=== PATIENT | male | born 1950 | race Caucasian/White ===

== ENCOUNTER 2020-02-18 12:41 | Outpatient (CLI) | payer MEDICARE, MEDICAID, SELFPAY ==
--- NOTE | 2020-02-18 | MR_ITS ---
NOTE: Report was unsigned for reason: Order was edited. Original Signature date and time was: 02/18/20 1448 WS: [id number] MRI LUMBAR SPINE NONCONTRAST HISTORY: SCHWANNOMA OF SPINAL CORD COMPARISON: 02/07/2019 TECHNIQUE: Sagittal and axial multisequence imaging is submitted. Patient was unable to continue the examination with contrast due to pain. 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 On the noncontrast imaging submitted there is no increased soft tissue abnormality or soft tissue thickening or signal abnormality to suggest recurrent tumor. Prior vertebroplasties at T12 and L1. Compression fractures are stable. 4 mm retropulsion posterior superior endplate of L3 is stable with mild compression upon the ventral thecal sac. Mild disc space narrowing and desiccation throughout the lumbar spine. No acute fractures or acute marrow edema. Conus terminates normally at L1. L1-L2: No central stenosis. Mild facet facet joint arthritis with mild LEFT foraminal narrowing due to a small protrusion and facet arthritis. L2-L3: Diffuse annular disc bulging and retropulsion of the L3 superior endplate facet arthritis. Moderate encroachment upon the ventral thecal sac. There is mild central and moderate subarticular recess stenosis. Mild bilateral foraminal narrowing. L3-L4: Mild diffuse annular disc bulging and facet arthritis. Disc osteophyte encroachment upon the ventral thecal sac. Mild central stenosis. There is moderate bilateral foraminal stenosis. L4-L5: Mild annular disc bulging and facet arthritis. Mild bilateral foraminal stenosis. L5-S1: Mild annular disc bulging with slight contact upon the RIGHT S1 nerve root similar to the prior study. [facility] MR/MR lumbar spine wo/w con [id number] IMPRESSION: 1. Study terminated early due to patient's pain. No contrast study performed. 2. Large laminectomy defects at L1 and L2. On this noncontrast study no eviden ce for recurrent or residual schwannoma. 3. Multilevel degenerative changes of the lumbar spine. No significant progres oliverio since 02/07/2019. 4. Prior stable compression fractures with vertebroplasties at T12 and L3. 5. L3 retropulsion with mild contact on the thecal sac and central stenosis. 6. Mild central with moderate bilateral subarticular recess stenosis at L2-3. 7. Mild central and moderate bilateral foraminal stenosis at L3-4. 8. Mild bilateral foraminal stenosis at L4-5 and on the LEFT at L1-2.
[2020-02-18 14:02] LABS: Glomerular Filtration Rate 83.7 mL/min (90-130)
== END 2020-02-18 12:42 | disposition home or self-care (01) ==
PROVIDERS: PCP Family Medicine; Visit Provider Specialist
DX: D33.4 Benign neoplasm of spinal cord (principal); M48.061 Spinal stenosis, lumbar region without neurogenic claudication
CPT/HCPCS: 36415; 72148; 72158; 82565; A9579

== ENCOUNTER → 2020-04-16 09:17 | Outpatient (BNVA) | payer MEDICARE, MEDICAID, SELFPAY | PROVIDERS: PCP Family Medicine; Referring Provider Specialist; Visit Provider Anesthesiology Pain Medicine | DX: M47.816 Spondylosis without myelopathy or radiculopathy, lumbar region (principal); M54.16 Radiculopathy, lumbar region; M54.9 Dorsalgia, unspecified; M62.830 Muscle spasm of back; Z98.1 Arthrodesis status; Z98.890 Other specified postprocedural states | CPT/HCPCS: 99204 ==

== ENCOUNTER 2020-04-20 18:27 | Emergency (ER) | payer MEDICARE, MEDICAID, SELFPAY ==
[2020-04-20] VITALS (8 sets, daily range): BP systolic 82–114; BP diastolic 53–87; PULSE 64–86; RESP 16–18; O2SAT 90–96; BMI 25.1
--- NOTE | 2020-04-20 18:32 | XR_ITS ---
WS: [id number] Portable AP upright chest, 04/20/2020 Clinical Data: ams Comparison: Bilateral rib detail, 03/10/2016. Findings: No nodules, masses or effusions are seen. The heart is normal. The pulmonary vascularity is not increased. No pneumonia or pneumothorax is seen. The patient has had an anterior cervical disc f usion from C5 through C7. Vertebroplasty cement is noted at T12 and L1. XR/XR chest 1V portable [id number] Impression: Negative for acute cardiopulmonary disease.
--- NOTE | 2020-04-20 18:33 | ECG_ITS ---
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 Measurements Intervals [place] Rate: 77 P: 40 ID: [id number] QRS: 15 QRSD: 85 T: 29 QT: 366 QTc: 417 Interpretive Statements SINUS RHYTHM Compared to ECG 12/15/2017 06:36:35 No significant changes Electronically Signed On 04-20-2020 19:08:37 CDT by Diogo Jarrell M.D. [id number]
--- NOTE | 2020-04-20 18:34 | ED_ITS ---
HPI - Altered Mental Status General: Chief Complaint: Weakness Stated Complaint: MULTIPLE SYMPTOMS Time Seen by Provider: 04/20/20 18:28 Source: patient and EMS Mode of arrival: EMS Limitations: no limitations History of Present Illness: HPI narrative: 69-year-old male who presents here with EMS from local care home. Per EMS care home nurse did not know patient's baseline but during his neuro check he was confused. Patient has a history of schwannoma of the spinal cord and some confusion in the past. Patient here is able answer all my questions appropriately he knows name he knows the year and he knows where he lives. He has no complaints at this time and denies any pain or headache. Associated symptoms: Deny depression Review of Systems Const: Denies: fever(s), chills, body aches or change in appetite Eyes: Denies: blurry vision or eye discomfort ENMT: Denies: throat pain or dental pain Card: Denies: chest pain Resp: Denies: dyspnea GI: Denies: abdominal pain, nausea, vomiting or diarrhea : Denies: dysuria Musc: Denies: neck pain or back pain Skin/Breast: Denies: rash Neuro: Reports: confusion Psych: Denies: depression Kye/Lymph: Denies: easy bruising All/Imm: Denies: urticaria PFSH ED PFSH: Medical History (Updated 04/20/20 @ 21:33 by Ricci Calderón MD) Schwannoma of spinal cord Surgical History (Updated 04/16/20 @ 10:10 by Delroy Mckeon MD) History of fusion of cervical spine (~05/31/16) C5-6, C6-7 [place] [facility] [place] l[place]ctomy (~11/29/16) 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, extramedullary neoplasm[place] [facility] [place] Smoking and tobacco status: never smoked Alcohol intake: never Lives independently: Yes Housing: Assisted Living Facility Marital status: Single Current occupational status: retired History of recent travel: No Physical Exam Const: COMMON NORMALS: no acute distress, patient oriented x3 and healthy appearing HENMT: COMMON NORMALS: normocephalic and atraumatic HEAD & SCALP: normocephalic and atraumatic Eye: COMMON NORMALS: Equal, round and reactive pupils present and EOMs intact bilaterally PUPIL: Yes Equal, round and reactive pupils present Neck/C-Spine: COMMON NORMALS: full ROM and supple Chest: COMMONS NORMALS: normal inspection of the chest and normal palpation of entire chest wall Resp: COMMON NORMALS: normal respiratory effort, No retractions, No use of accessory muscles and clear to auscultation bilaterally AUSCULTATION: clear to auscultation bilaterally Cardio: COMMON NORMALS: regular rate, regular rhythm and No murmurs present (Cardio) RATE: regular rate RHYTHM: regular rhythm GI: COMMON NORMALS: Normal to inspection, nondistended, normoactive bowel sounds present, Soft to palpation, non-tender and no masses PALPATION: Yes Soft to palpation Extremity: COMMON NORMALS: normal to inspection and full ROM Neuro: COMMON NORMALS: patient oriented x3, moves all extremities and no focal motor deficits Psych: COMMON NORMALS: mental status grossly normal, Normal thought process present and cooperative THOUGHT PROCESS: Normal thought process present Skin: COMMON NORMALS: no rashes or lesions noted and no wounds GENERAL SKIN EXAM: no rashes or lesions noted Course Vital Signs: Vital signs: Vital Signs Pulse Rate 78 04/20/20 18:29 Respiratory Rate 18 04/20/20 18:29 Blood Pressure 106/68 04/20/20 18:29 Pulse Oximetry 93 04/20/20 18:29 MDM - Altered Mental Status MDM Narrative: Medical decision making narrative: Patient presents here with weakness. Patient here is no signs of stroke and CT head lab works all normal. Patient is ANO x4 and able answer all my questions appropriately. Patient is stable for discharge back to care home at this time. Patient is to follow-up with primary care doctor in 3 to 5 days return if worsening. Lab Data: Labs: Lab Results 04/20/20 04/20/20 04/20/20 Range/Units 18:42 18:42 18:42 WBC 6.5 (4.0-10.0) 10^3/ uL RBC 3.69 L (4.1-5.3) 10^6/u L Hgb 11.8 (11.7-16.6) g/dL Hct 36.8 L (42.0-52.0) % MCV 99.7 H (80-94) fL MCH 32.0 (28.0-34.0) pg MCHC 32.1 (30.0-36.0) g/dL RDW 14.3 (12.1-15.1) % Plt Count 243 (130-400) 10^3/c mm MPV 10.6 H (7.4-10.4) fL Neut % (Auto) 50.6 % Lymph % (Auto) 35.2 % [place] % (Auto) 8.5 % Eos % (Auto) 4.6 % Baso % (Auto) 0.8 % Neut # (Auto) 3.28 (1.8-7.7) 10^3/u L Lymph # (Auto) 2.3 (0.8-4.8) 10^3/u L [place] # (Auto) 0.6 (0.2-0.9) 10^3/u L Eos # (Auto) 0.3 (0.0-0.8) 10^3/u L Baso # (Auto) 0.1 (0.0-0.1) 10^3/u L Nucleated RBC % (a uto) 0 % Nucleated RBCs # 0.0 /100WBC PT 14.40 H (10.5-13.3) SECO NDS INR 1.08 (0.8-1.2) Sodium 138 (136-145) mmol/L Potassium 3.5 (3.5-5.1) mmol/L Chloride 106 (98-107) mmol/L Carbon Dioxide 19 L (22-29) mmol/L Anion Gap 16.5 (5-19) BUN 25 H (8-23) mg/dL Creatinine 1.8 H (0.7-1.2) mg/dL GFR Calculation 37.6 L (90-130) mL/min Glucose 119 H (65-115) mg/dL Calculated Osmolal ity 284 L (285-295) mOsm/k g Calcium 8.3 L (8.5-10.5) mg/dL Total Bilirubin 0.2 (0.15-1.2) mg/dL AST 40 (0-40) U/L ALT 17 (0-41) U/L Alkaline Phosphata se 136 H (40-130) IU/L Total Protein 7.0 (6.6-8.7) g/dL Albumin 3.5 (3.5-5.2) g/dL Globulin 3.5 (1.3-4.6) g/dL Urine Color (Yellow) Urine Appearance (CLEAR) Urine pH (5-7) Ur Specific Gravit y (1.005-1.030) Urine Protein (Negative) Urine Glucose (UA) (Normal) Urine Ketones (Negative) Urine Blood (Negative) Urine Nitrate (Negative) Urine Bilirubin (NEGATIVE) Urine Urobilinogen (Negative) mg/dL Ur Leukocyte Payal ase (Negative) Urine RBC (0-2) /hpf Urine WBC (0-5) /hpf Ur Squamous Epith Cells (0-5) Ur Transition Epit h Cell /hpf Amorphous Sediment Urine Bacteria (NONE) Hyaline Casts Coarse Granular Ca sts /lpf Other Casts /lpf Urine Mucus 04/20/20 Range/Units 19:45 WBC (4.0-10.0) 10^3/ uL RBC (4.1-5.3) 10^6/u L Hgb (11.7-16.6) g/dL Hct (42.0-52.0) % MCV (80-94) fL MCH (28.0-34.0) pg MCHC (30.0-36.0) g/dL RDW (12.1-15.1) % Plt Count (130-400) 10^3/c mm MPV (7.4-10.4) fL Neut % (Auto) % Lymph % (Auto) % [place] % (Auto) % Eos % (Auto) % Baso % (Auto) % Neut # (Auto) (1.8-7.7) 10^3/u L Lymph # (Auto) (0.8-4.8) 10^3/u L [place] # (Auto) (0.2-0.9) 10^3/u L Eos # (Auto) (0.0-0.8) 10^3/u L Baso # (Auto) (0.0-0.1) 10^3/u L Nucleated RBC % (a uto) % Nucleated RBCs # /100WBC PT (10.5-13.3) SECO NDS INR (0.8-1.2) Sodium (136-145) mmol/L Potassium (3.5-5.1) mmol/L Chloride (98-107) mmol/L Carbon Dioxide (22-29) mmol/L Anion Gap (5-19) BUN (8-23) mg/dL Creatinine (0.7-1.2) mg/dL GFR Calculation (90-130) mL/min Glucose (65-115) mg/dL Calculated Osmolal ity (285-295) mOsm/k g Calcium (8.5-10.5) mg/dL Total Bilirubin (0.15-1.2) mg/dL AST (0-40) U/L ALT (0-41) U/L Alkaline Phosphata se (40-130) IU/L Total Protein (6.6-8.7) g/dL Albumin (3.5-5.2) g/dL Globulin (1.3-4.6) g/dL Urine Color Yellow (Yellow) Urine Appearance Hazy A (CLEAR) Urine pH 5 (5-7) Ur Specific Gravit y 1.015 (1.005-1.030) Urine Protein Neg (Negative) Urine Glucose (UA) Norm (Normal) Urine Ketones Negative (Negative) Urine Blood Trace H (Negative) Urine Nitrate Negative (Negative) Urine Bilirubin 1+ H (NEGATIVE) Urine Urobilinogen Norm (Negative) mg/dL Ur Leukocyte Payal ase Negative (Negative) Urine RBC 0-4 H (0-2) /hpf Urine WBC 5-10 H (0-5) /hpf Ur Squamous Epith Cells 0-4 H (0-5) Ur Transition Epit h Cell 15-25 /hpf Amorphous Sediment Not Reportable Urine Bacteria Trace (NONE) Hyaline Casts 0-4 H Coarse Granular Ca sts Rare /lpf Other Casts Wbc cast /lpf Urine Mucus Trace Imaging Data^: CT Head: Radiologist's impression: [address] [place] [address] CT Scan Report Signed Patient: Ketan Sosa Unit #: [id number] : 1950 2 Age/Sex: 69 / M ADM Date: 04/20/20 Loc: ER Room/Bed: Attending Dr: Ordering Provider/Ordering MD: Ricci Calderón MD Date of Service: 04/20/20 Procedure(s): CT head wo con* [id number] Accession Number(s): [id number] Report Number: [id number] PROCEDURE INFORMATION: Exam: CT Head Without Contrast Exam date and time: 04/20/2020 7:34 PM Age: 69 years old Clinical indication: Altered mental status/memory loss; Additional info: AMS TECHNIQUE: Imaging protocol: Computed tomography of the head without contrast. Radiation optimization: All CT scans at this facility use at least one of these dose optimization techniques: automated exposure control; mA and/or kV adjustment per patient size (includes targeted exams where dose is matched to clinical indication); or iterative reconstruction. COMPARISON: CT head wo con* [id number] 12/15/2017 7:04 AM RADIATION DOSE METRICS: Total DLP (mGy-cm): 736.34 FINDINGS: Brain: There is diffuse cerebral atrophy present, consistent with this patient's age.No evidence for large acute ischemic infarction. Please note acute ischemia can be occult by head CT. 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 Bones/joints: Unremarkable. No acute fracture. Sinuses: Visualized sinuses are unremarkable. No fluid levels. Mastoid air cells: Visualized mastoid air cells are well aerated. Soft tissues: Unremarkable. CT/CT head wo con* [id number] IMPRESSION: There are senescent changes of the brain as described above. No evidence for large acute ischemic infarction or acute intracranial injury. Radiation Dose CTDIVOL = (mGy): DLP = 736.34 (mGy-cm) CXR: Attestation: I personally reviewed and interpreted this imaging study as follows: My impression: No acute abnormality EKG Data^: EKG 1: Attestation: I personally reviewed and interpreted this EKG as follows: EKG interpretation date: 04/20/20 EKG interpretation time: 18:53 Interpretation: nsr hr [address] or t wave abnormalities qrs 86 qtc 398 Discharge Plan Discharge Patient Disposition: Home, Self-Care Clinical Impression: Weakness Condition: Stable Prescriptions: No Action primidone 50 mg tablet 250 mg PO QID RF: 0 acetaminophen [Tylenol Extra Strength] 500 mg tablet 500 mg PO Q6H PRN (Reason: Pain) RF: 0 ibuprofen 600 mg tablet 600 mg PO Q8H PRN (Reason: Pain) RF: 0 atorvastatin 40 mg tablet 40 mg PO DAILY RF: 0 senna 8.6 mg capsule 8.6 mg PO BID PRN (Reason: Constipation) RF: 0 ergocalciferol (vitamin D2) [Vitamin D2] 1,250 mcg (50,000 unit) capsule 1,250 mcg PO .WEEKLY RF: 0 aspirin 325 mg tablet 325 mg PO DAILY RF: 0 melatonin 5 mg capsule 5 mg PO BEDTIME RF: 0 gabapentin 300 mg capsule 300 mg PO DAILY RF: 0 topiramate 25 mg capsule,extended release 24hr 75 mg PO BID RF: 0 sulfamethoxazole-trimethoprim [Bactrim DS] 800-160 mg Tablet 1 tab PO BID RF: 0 baclofen 10 mg tablet 10 mg PO DAILY RF: 0 Enema Disposable 19-7 gram/118 mL Enema 118 ml UT DAILY PRN (Reason: Constipation) RF: 0 Saccharomyces boulardii [Florastor] 250 mg Capsule 250 mg PO TID RF: 0 Discharge Orders: Discharge Order (Routine); Ordered 04/20/20 Ordered By: Ricci Calderón Referrals: Raúl Keller DO [Primary Care Provider] - 1-3 days Discharge Diet: Advance as tolerated Discharge Activity: Resume usual activity Patient Instructions: Weakness (ED) Coding Level of Care Code ED Hem Marker for Chg Fwd Exam Comprehensive
[2020-04-20 18:48] LABS: Basophils # 0.1 10^3/uL (0.0-0.1); Basophils % 0.8 %; Eosinophils # 0.3 10^3/uL (0.0-0.8); Eosinophils % 4.6 %; Hematocrit 36.8 % (42.0-52.0); Hemoglobin 11.8 g/dL (11.7-16.6); Lymphocytes # 2.3 10^3/uL (0.8-4.8); Lymphocytes % 35.2 %; Mean Corpuscular HGB Conc 32.1 g/dL (30.0-36.0); Mean Corpuscular Volume 99.7 fL (80-94); Mean Platelet Volume 10.6 fL (7.4-10.4); Monocytes # 0.6 10^3/uL (0.2-0.9); Monocytes % 8.5 %; Neutrophils # 3.28 10^3/uL (1.8-7.7); Neutrophils % 50.6 %; Nucleated Red Blood Cells % 0 %; Platelet Count 243 10^3/cmm (130-400); Red Blood Count 3.69 10^6/uL (4.1-5.3); Red Cell Distribution Width 14.3 % (12.1-15.1); White Blood Count 6.5 10^3/uL (4.0-10.0)
[2020-04-20] MEDS: sodium chloride 0.9% 1,000 ML 999 ML IV (18:53)
[2020-04-20 18:56] LABS: INR 1.08 (0.8-1.2)
[2020-04-20 19:16] LABS: Alanine Aminotransferase 17 U/L (0-41); Albumin Level 3.5 g/dL (3.5-5.2); Alkaline Phosphatase 136 IU/L (40-130); Anion Gap 16.5 (5-19); Aspartate Amino Transferase 40 U/L (0-40); Blood Urea Nitrogen 25 mg/dL (8-23); Calcium 8.3 mg/dL (8.5-10.5); Carbon Dioxide 19 mmol/L (22-29); Chloride 106 mmol/L (98-107); Globulin 3.5 g/dL (1.3-4.6); Glomerular Filtration Rate 37.6 mL/min (90-130); Glucose 119 mg/dL (65-115); Osmolality Calculated 284 mOsm/kg (285-295); Potassium 3.5 mmol/L (3.5-5.1); Sodium 138 mmol/L (136-145); Total Bilirubin 0.2 mg/dL (0.15-1.2)
[2020-04-20 21:21] LABS: Add Urine Microscopic? YES; Bilirubin Urine 1+ (NEGATIVE); Blood Urine Trace (Negative); Glucose Urine UA Norm (Normal); Ketones Urine Negative (Negative); Leukocyte Esterase Urine Negative (Negative); Nitrate Urine Negative (Negative); Protein Urine Neg (Negative); Specific Gravity, Urine 1.015 (1.005-1.030); Urine Appearance Hazy (CLEAR); Urine Color Yellow (Yellow); Urobilinogen Urine Norm (Negative); pH Urine 5 (5-7)
[2020-04-20 21:23] LABS: Bacteria Urine TRACE; RBC Urine 0-4 /hpf (0-2); Squamous Epithelial Cell Urine 0-4 (0-5); Transitional Epi Cells Urine 15-25 /hpf
[2020-04-20 21:24] LABS: Coarse Granular Casts Urine RARE /lpf; Hyaline Casts Urine 0-4; Mucus Urine TRACE; Other Casts Urine WBC CAST /lpf
[2020-04-20 21:25] LABS: Add Urine Culture? No
--- NOTE | 2020-04-21 05:07 | PC.NURSE ---
urinal provided to pt for safety
--- NOTE | 2020-04-21 05:17 | PC.NURSE ---
pt assisted to commode with staff assistance
[2020-04-21 07:23] VITALS: BP 112/65; PULSE 70; RESP 15; O2SAT 96
[2020-04-21 08:22] VITALS: BP 118/72; PULSE 76; RESP 18; O2SAT 96
== END 2020-04-21 08:24 | disposition home or self-care (01) ==
PROVIDERS: Emergency Provider Emergency Medicine; PCP Family Medicine
DX: R53.1 Weakness (principal); Z79.82 Long term (current) use of aspirin
CPT/HCPCS: 12345; 70450; 71045; 80053; 81001; 81003; 85025; 85610; 93005; 96360; 99282; 99284; J7030

== ENCOUNTER 2020-06-02 18:12 | Inpatient (IN) | payer MEDICARE, MEDICAID, SELFPAY ==
[2020-06-02 18:12] VITALS: BP 115/66; PULSE 100; RESP 16; TEMP 36.9; O2SAT 91; BMI 22.1
--- NOTE | 2020-06-02 18:24 | CTR_ITS ---
PROCEDURE INFORMATION: Exam: CT Head Without Contrast Exam date and time: 06/02/2020 6:32 PM Age: 70 years old Clinical indication: Injury or trauma; Fall; Altered mental status/memory loss; Additional info: Fall, head injury, AMS TECHNIQUE: Imaging protocol: Computed tomography of the head without contrast. Sagittal and coronal reformatted images were created and reviewed. Radiation optimization: All CT scans at this facility use at least one of these dose optimization techniques: automated exposure control; mA and/or kV adjustment per patient size (includes targeted exams where dose is matched to clinical indication); or iterative reconstruction. COMPARISON: CT head wo con* [id number] 04/20/2020 7:27 PM RADIATION DOSE METRICS: Total DLP (mGy-cm): 628.36 FINDINGS: Brain: No acute intracranial hemorrhage. No acute infarct. No intra-axial or extra-axial masses. Rowell-white matter differentiation is preserved. No cerebral edema. No extra-axial fluid collections. No midline shift. No evidence for Chiari 1 malformation. Stable mild atrophy of the brain parenchyma. Stable mildly decreased attenuation in the deep white matter, consistent with mild chronic microangiopathic change. Ventricles: No hydrocephalus. Bones/joints: No acute fracture. Sinuses: Partially visualized small left maxillary sinus mucous retention cyst. Small air-fluid level in the visualized left maxillary sinus. Other visualized paranasal sinuses are clear. Mastoid air cells: Visualized mastoid air cells are clear. Orbits: Globes and lenses, extraocular muscles, and optic nerves are intact bilaterally. No acute intraorbital abnormality. Vasculature: Atherosclerotic changes in the visualized arteries. Soft tissues: Small right supraorbital soft tissue hematoma/contusion. CT/CT head wo con* [id number] IMPRESSION: 1. No acute abnormality of the brain. 2. Small air-fluid level in the visualized left maxillary sinus. This may represent acute sinusitis. Alternatively, this could represent hemorrhage in the sinus given history of trauma. If there is clinical concern for facial injury, dedicated CT scan of the facial bones would be recommended. 3. Stable mild atrophy of the brain parenchyma. 4. Stable mild chronic white matter microangiopathic change. 5. Small right supraorbital soft tissue hematoma/contusion. 6. Incidental/nonacute findings are listed in the report. Radiation Dose CTDIVOL = (mGy): DLP = 628.36 (mGy-cm)
--- NOTE | 2020-06-02 18:24 | XRR_ITS ---
PROCEDURE INFORMATION: Exam: XR Chest, 1 View Exam date and time: 06/02/2020 6:48 PM Age: 70 years old Clinical indication: Other: AMS; Patient HX: Patient unable to communicate history TECHNIQUE: Imaging protocol: XR of the chest Views: 1 view. COMPARISON: CR XR chest 1V portable [id number] 04/20/2020 7:21 PM FINDINGS: Lungs: Lungs are well aerated without a focal area of consolidation. Pleural space: Unremarkable. No pleural effusion. No pneumothorax. Heart/Mediastinum: Unremarkable. No cardiomegaly. Bones/joints: Prior surgical fixation of the caudal aspect of the cervical spine. Numerous old rib fractures on the left XR/XR chest 1V portable [id number] IMPRESSION: Lungs are well aerated without a focal area of consolidation.
--- NOTE | 2020-06-02 18:25 | ECG_ITS ---
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 Measurements Intervals [place] Rate: 92 P: 55 [place]: 159 QRS: 46 QRSD: 88 T: 37 QT: 347 QTc: 429 Interpretive Statements SINUS RHYTHM NONSPECIFIC ST & T-WAVE ABNORMALITY Compared to ECG 04/20/2020 18:53:16 T-wave abnormality now present Electronically Signed On 06-03-2020 17:25:05 CDT by Kiki Dominguez M.D. [id number]
--- NOTE | 2020-06-02 18:27 | ED_ITS ---
Documented by User: Isis Fam MD 06/04/20 20:28 HPI - Fall General: Chief Complaint: Fall Stated Complaint: AMS/ MULTIPLE FALLS Time Seen by Provider: 06/02/20 18:15 History of Present Illness: HPI Narrative: This patient is a 70-year-old male presenting from the skilled nursing in [place]. He was sent due to repeated falls in the last 24 hours. He also has had altered mental status from his baseline and is being uncooperative with care. EMS actually called me from the skilled nursing because the patient was refusing transport. They said that the attending physician at the skilled nursing had overridden the patient's ability to refuse transport. The serologist told me that he felt the patient was not competent to make his own decisions currently and so I did recommend he transport the patient. On arrival the patient is awake and alert but disoriented. He is able to tell me that he lives in the skilled nursing in [facility] but when I asked him where he is he also tells me he is in the skilled nursing in [place]. Even when I corrected him and said he was in the hospital he just kept repeating skilled nursing, skilled nursing, skilled nursing. He has multiple bruises over the right side of his face and on his right hand. He was able to tell me that he fell and that is what caused these bruises. He said his knees give out on him any falls. He does have a history of a prior schwannoma in his lower back and also has persistent chronic back pain and some stenosis in that area on a fairly recent MRI. He currently denies any pain, including in his back. He said he feels fine. His speech and movements are very stereotyped and repetitive. complaint: fall Onset (ago): day(s) (1) Fall from: standing Fall witnessed: yes, by living facility staff Place fall occurred: skilled nursing/SNF Loss of consciousness: None Review of Systems General: Reports: ROS unobtainable due to mental status PFSH ED 2 PFSH: Medical History Arthritis BPH (benign prostatic hyperplasia) GERD (gastroesophageal reflux disease) Intracranial mass senior living (current) use of opiate analgesic Mild cognitive impairment Osteoarthritis Pain management contract signed Schwannoma of spinal cord Tremor Surgical History History of fusion of cervical spine (~05/31/16) C5-6, C6-7 ACDFF, 05/31/2016, [facility] History of lumbar laminectomy (~11/29/16) 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 Multiple hematomas Eye: GENERAL EYE: appearance normal, both eyes and all related structures Neck/C-Spine: COMMON NORMALS: supple, no meningeal signs and no JVD Chest: COMMONS NORMALS: normal inspection of the chest Resp: COMMON NORMALS: normal respiratory effort, No use of accessory muscles and clear to auscultation bilaterally AUSCULTATION: clear to auscultation bilaterally Cardio: COMMON NORMALS: no JVD, regular rate, regular rhythm and No murmurs present (Cardio) RATE: regular rate RHYTHM: regular rhythm GI: COMMON NORMALS: Normal to inspection, nondistended, normoactive bowel sounds present, Soft to palpation and non-tender INSPECTION: Yes normal to inspection AUSCULTATION: Yes normoactive bowel sounds PALPATION: Yes Soft to palpation Back/Pelvis: COMMON NORMALS: thoracic and lumbar spine normal to inspection Extremity: COMMON NORMALS: normal to inspection Neuro: COMMON NORMALS: moves all extremities, no focal motor deficits and no sensory deficits noted SENSORIUM/ORIENTATION: Yes alert and Yes Orientation impaired MENINGEAL SIGNS: Yes no meningeal signs CRANIAL NERVES: Yes CN normal except as noted SPEECH: Other neuro speech findings (Stereotyped, repetitive) Psych: COMMON NORMALS: mental status grossly normal, cooperative and normal affect Skin: COMMON NORMALS: no rashes or lesions noted and turgor normal GENERAL SKIN EXAM: no rashes or lesions noted and turgor normal Course Vital Signs: Vital signs: Vital Signs Temperature 98.5 F 06/04/20 18:33 Pulse Rate 77 06/04/20 18:33 Respiratory Rate 16 06/04/20 18:33 Blood Pressure 109/68 06/04/20 18:33 Pulse Oximetry 95 06/04/20 18:33 MDM - Fall Lab Data: Labs: Lab Results 06/02/20 06/02/20 06/02/20 Range/Units 18:25 18:53 18:53 WBC 9.1 (4.0-10.0) 10^3/ uL RBC 3.91 L (4.1-5.3) 10^6/u L Hgb 12.6 (11.7-16.6) g/dL Hct 39.5 L (42.0-52.0) % MCV 101.0 H (80-94) fL MCH 32.2 (28.0-34.0) pg MCHC 31.9 (30.0-36.0) g/dL RDW 15.7 H (12.1-15.1) % Plt Count 276 (130-400) 10^3/c mm MPV 11.0 H (7.4-10.4) fL Neut % (Auto) 70.9 % Lymph % (Auto) 22.0 % [place] % (Auto) 5.5 % Eos % (Auto) 0.7 % Baso % (Auto) 0.5 % Neut # (Auto) 6.47 (1.8-7.7) 10^3/u L Lymph # (Auto) 2.0 (0.8-4.8) 10^3/u L [place] # (Auto) 0.5 (0.2-0.9) 10^3/u L Eos # (Auto) 0.1 (0.0-0.8) 10^3/u L Baso # (Auto) 0.1 (0.0-0.1) 10^3/u L Nucleated RBC % (a uto) 0 % Nucleated RBCs # 0.0 /100WBC PT (12.1-14.9) SECO NDS INR (0.8-1.2) Sodium 138 (136-145) mmol/L Potassium 3.3 L (3.5-5.1) mmol/L Chloride 104 (98-107) mmol/L Carbon Dioxide 16 L (22-29) mmol/L Anion Gap 21.3 H (5-19) BUN 33 H (8-23) mg/dL Creatinine 2.6 H (0.7-1.2) mg/dL GFR Calculation 24.5 L (90-130) mL/min Glucose 99 (65-115) mg/dL POC Glucose 102 (70-110) mg/dL Calculated Osmolal ity 283 L (285-295) mOsm/k g Lactic Acid (0.5-2.2) mmol/L Calcium 7.9 L (8.5-10.5) mg/dL Total Bilirubin 0.2 (0.15-1.2) mg/dL AST 32 (0-40) U/L ALT 15 (0-41) U/L Alkaline Phosphata se 102 (40-130) IU/L Troponin T Baselin e (0-15) ng/L Troponin T 120 Min nondalton (0-15) ng/L Delta Troponin T (0-10) ABS# Troponin T Hi Sens 6Hr (0-15) ng/L Troponin T Hi Sens 6Hr Delta (0-12) ng/L Total Protein 6.7 (6.6-8.7) g/dL Albumin 3.3 L (3.5-5.2) g/dL Globulin 3.4 (1.3-4.6) g/dL Vitamin B12 (232-1245) pg/mL TSH (0.27-4.20) uIU/ mL Urine Color (Yellow) Urine Appearance (CLEAR) Urine pH (5-7) Ur Specific Gravit y (1.005-1.030) Urine Protein (Negative) Urine Glucose (UA) (Normal) Urine Ketones (Negative) Urine Blood (Negative) Urine Nitrate (Negative) Urine Bilirubin (NEGATIVE) Urine Urobilinogen (Negative) mg/dL Ur Leukocyte Payal ase (Negative) Urine RBC (0-2) /hpf Urine WBC (0-5) /hpf Ur Squamous Epith Cells (0-5) Amorphous Sediment Urine Bacteria (NONE) Hyaline Casts Ur Random Sodium mmol/L Urine Creatinine (39-259) mg/dL 06/02/20 06/02/20 06/02/20 Range/Units 18:53 18:53 18:53 WBC (4.0-10.0) 10^3/ uL RBC (4.1-5.3) 10^6/u L Hgb (11.7-16.6) g/dL Hct (42.0-52.0) % MCV (80-94) fL MCH (28.0-34.0) pg MCHC (30.0-36.0) g/dL RDW (12.1-15.1) % Plt Count (130-400) 10^3/c mm MPV (7.4-10.4) fL Neut % (Auto) % Lymph % (Auto) % [place] % (Auto) % Eos % (Auto) % Baso % (Auto) % Neut # (Auto) (1.8-7.7) 10^3/u L Lymph # (Auto) (0.8-4.8) 10^3/u L [place] # (Auto) (0.2-0.9) 10^3/u L Eos # (Auto) (0.0-0.8) 10^3/u L Baso # (Auto) (0.0-0.1) 10^3/u L Nucleated RBC % (a uto) % Nucleated RBCs # /100WBC PT 14.00 (12.1-14.9) SECO NDS INR 1.05 (0.8-1.2) Sodium (136-145) mmol/L Potassium (3.5-5.1) mmol/L Chloride (98-107) mmol/L Carbon Dioxide (22-29) mmol/L Anion Gap (5-19) BUN (8-23) mg/dL Creatinine (0.7-1.2) mg/dL GFR Calculation (90-130) mL/min Glucose (65-115) mg/dL POC Glucose (70-110) mg/dL Calculated Osmolal ity (285-295) mOsm/k g Lactic Acid 1.0 (0.5-2.2) mmol/L Calcium (8.5-10.5) mg/dL Total Bilirubin (0.15-1.2) mg/dL AST (0-40) U/L ALT (0-41) U/L Alkaline Phosphata se (40-130) IU/L Troponin T Baselin e 102 H* (0-15) ng/L Troponin T 120 Min nondalton (0-15) ng/L Delta Troponin T (0-10) ABS# Troponin T Hi Sens 6Hr (0-15) ng/L Troponin T Hi Sens 6Hr Delta (0-12) ng/L Total Protein (6.6-8.7) g/dL Albumin (3.5-5.2) g/dL Globulin (1.3-4.6) g/dL Vitamin B12 (232-1245) pg/mL TSH (0.27-4.20) uIU/ mL Urine Color (Yellow) Urine Appearance (CLEAR) Urine pH (5-7) Ur Specific Gravit y (1.005-1.030) Urine Protein (Negative) Urine Glucose (UA) (Normal) Urine Ketones (Negative) Urine Blood (Negative) Urine Nitrate (Negative) Urine Bilirubin (NEGATIVE) Urine Urobilinogen (Negative) mg/dL Ur Leukocyte Payal ase (Negative) Urine RBC (0-2) /hpf Urine WBC (0-5) /hpf Ur Squamous Epith Cells (0-5) Amorphous Sediment Urine Bacteria (NONE) Hyaline Casts Ur Random Sodium mmol/L Urine Creatinine (39-259) mg/dL 06/02/20 06/02/20 06/02/20 Range/Units 18:57 18:59 20:58 WBC (4.0-10.0) 10^3/ uL RBC (4.1-5.3) 10^6/u L Hgb (11.7-16.6) g/dL Hct (42.0-52.0) % MCV (80-94) fL MCH (28.0-34.0) pg MCHC (30.0-36.0) g/dL RDW (12.1-15.1) % Plt Count (130-400) 10^3/c mm MPV (7.4-10.4) fL Neut % (Auto) % Lymph % (Auto) % [place] % (Auto) % Eos % (Auto) % Baso % (Auto) % Neut # (Auto) (1.8-7.7) 10^3/u L Lymph # (Auto) (0.8-4.8) 10^3/u L [place] # (Auto) (0.2-0.9) 10^3/u L Eos # (Auto) (0.0-0.8) 10^3/u L Baso # (Auto) (0.0-0.1) 10^3/u L Nucleated RBC % (a uto) % Nucleated RBCs # /100WBC PT (12.1-14.9) SECO NDS INR (0.8-1.2) Sodium (136-145) mmol/L Potassium (3.5-5.1) mmol/L Chloride (98-107) mmol/L Carbon Dioxide (22-29) mmol/L Anion Gap (5-19) BUN (8-23) mg/dL Creatinine (0.7-1.2) mg/dL GFR Calculation (90-130) mL/min Glucose (65-115) mg/dL POC Glucose 93 (70-110) mg/dL Calculated Osmolal ity (285-295) mOsm/k g Lactic Acid (0.5-2.2) mmol/L Calcium (8.5-10.5) mg/dL Total Bilirubin (0.15-1.2) mg/dL AST (0-40) U/L ALT (0-41) U/L Alkaline Phosphata se (40-130) IU/L Troponin T Baselin e (0-15) ng/L Troponin T 120 Min nondalton 92.57 H (0-15) ng/L Delta Troponin T -9.43 L (0-10) ABS# Troponin T Hi Sens 6Hr (0-15) ng/L Troponin T Hi Sens 6Hr Delta (0-12) ng/L Total Protein (6.6-8.7) g/dL Albumin (3.5-5.2) g/dL Globulin (1.3-4.6) g/dL Vitamin B12 (232-1245) pg/mL TSH (0.27-4.20) uIU/ mL Urine Color Yellow (Yellow) Urine Appearance Hazy A (CLEAR) Urine pH 5 (5-7) Ur Specific Gravit y 1.020 (1.005-1.030) Urine Protein Neg (Negative) Urine Glucose (UA) Norm (Normal) Urine Ketones 1+ H (Negative) Urine Blood Neg (Negative) Urine Nitrate Negative (Negative) Urine Bilirubin Neg (NEGATIVE) Urine Urobilinogen Norm (Negative) mg/dL Ur Leukocyte Payal ase Negative (Negative) Urine RBC None (0-2) /hpf Urine WBC None (0-5) /hpf Ur Squamous Epith Cells 0-4 H (0-5) Amorphous Sediment 3+ Urine Bacteria Trace (NONE) Hyaline Casts 0-4 H Ur Random Sodium mmol/L Urine Creatinine (39-259) mg/dL 06/03/20 06/03/20 06/03/20 Range/Units 00:31 00:46 00:46 WBC (4.0-10.0) 10^3/ uL RBC (4.1-5.3) 10^6/u L Hgb (11.7-16.6) g/dL Hct (42.0-52.0) % MCV (80-94) fL MCH (28.0-34.0) pg MCHC (30.0-36.0) g/dL RDW (12.1-15.1) % Plt Count (130-400) 10^3/c mm MPV (7.4-10.4) fL Neut % (Auto) % Lymph % (Auto) % [place] % (Auto) % Eos % (Auto) % Baso % (Auto) % Neut # (Auto) (1.8-7.7) 10^3/u L Lymph # (Auto) (0.8-4.8) 10^3/u L [place] # (Auto) (0.2-0.9) 10^3/u L Eos # (Auto) (0.0-0.8) 10^3/u L Baso # (Auto) (0.0-0.1) 10^3/u L Nucleated RBC % (a uto) % Nucleated RBCs # /100WBC PT (12.1-14.9) SECO NDS INR (0.8-1.2) Sodium (136-145) mmol/L Potassium (3.5-5.1) mmol/L Chloride (98-107) mmol/L Carbon Dioxide (22-29) mmol/L Anion Gap (5-19) BUN (8-23) mg/dL Creatinine (0.7-1.2) mg/dL GFR Calculation (90-130) mL/min Glucose (65-115) mg/dL POC Glucose 73 (70-110) mg/dL Calculated Osmolal ity (285-295) mOsm/k g Lactic Acid (0.5-2.2) mmol/L Calcium (8.5-10.5) mg/dL Total Bilirubin (0.15-1.2) mg/dL AST (0-40) U/L ALT (0-41) U/L Alkaline Phosphata se (40-130) IU/L Troponin T Baselin e (0-15) ng/L Troponin T 120 Min nondalton (0-15) ng/L Delta Troponin T (0-10) ABS# Troponin T Hi Sens 6Hr 77.64 H (0-15) ng/L Troponin T Hi Sens 6Hr Delta -24.36 L (0-12) ng/L Total Protein (6.6-8.7) g/dL Albumin (3.5-5.2) g/dL Globulin (1.3-4.6) g/dL Vitamin B12 552 (232-1245) pg/mL TSH 2.96 (0.27-4.20) uIU/ mL Urine Color (Yellow) Urine Appearance (CLEAR) Urine pH (5-7) Ur Specific Gravit y (1.005-1.030) Urine Protein (Negative) Urine Glucose (UA) (Normal) Urine Ketones (Negative) Urine Blood (Negative) Urine Nitrate (Negative) Urine Bilirubin (NEGATIVE) Urine Urobilinogen (Negative) mg/dL Ur Leukocyte Payal ase (Negative) Urine RBC (0-2) /hpf Urine WBC (0-5) /hpf Ur Squamous Epith Cells (0-5) Amorphous Sediment Urine Bacteria (NONE) Hyaline Casts Ur Random Sodium mmol/L Urine Creatinine (39-259) mg/dL 06/03/20 06/03/20 06/03/20 Range/Units 02:40 04:40 04:51 WBC (4.0-10.0) 10^3/ uL RBC (4.1-5.3) 10^6/u L Hgb (11.7-16.6) g/dL Hct (42.0-52.0) % MCV (80-94) fL MCH (28.0-34.0) pg MCHC (30.0-36.0) g/dL RDW (12.1-15.1) % Plt Count (130-400) 10^3/c mm MPV (7.4-10.4) fL Neut % (Auto) % Lymph % (Auto) % [place] % (Auto) % Eos % (Auto) % Baso % (Auto) % Neut # (Auto) (1.8-7.7) 10^3/u L Lymph # (Auto) (0.8-4.8) 10^3/u L [place] # (Auto) (0.2-0.9) 10^3/u L Eos # (Auto) (0.0-0.8) 10^3/u L Baso # (Auto) (0.0-0.1) 10^3/u L Nucleated RBC % (a uto) % Nucleated RBCs # /100WBC PT (12.1-14.9) SECO NDS INR (0.8-1.2) Sodium 141 (136-145) mmol/L Potassium 3.7 (3.5-5.1) mmol/L Chloride 107 (98-107) mmol/L Carbon Dioxide 22 (22-29) mmol/L Anion Gap 15.7 (5-19) BUN 34 H (8-23) mg/dL Creatinine 2.0 H (0.7-1.2) mg/dL GFR Calculation 33.2 L (90-130) mL/min Glucose 130 H (65-115) mg/dL POC Glucose 118 (70-110) mg/dL Calculated Osmolal ity 291 (285-295) mOsm/k g Lactic Acid (0.5-2.2) mmol/L Calcium 7.6 L (8.5-10.5) mg/dL Total Bilirubin (0.15-1.2) mg/dL AST (0-40) U/L ALT (0-41) U/L Alkaline Phosphata se (40-130) IU/L Troponin T Baselin e (0-15) ng/L Troponin T 120 Min nondalton (0-15) ng/L Delta Troponin T (0-10) ABS# Troponin T Hi Sens 6Hr (0-15) ng/L Troponin T Hi Sens 6Hr Delta (0-12) ng/L Total Protein (6.6-8.7) g/dL Albumin (3.5-5.2) g/dL Globulin (1.3-4.6) g/dL Vitamin B12 (232-1245) pg/mL TSH (0.27-4.20) uIU/ mL Urine Color (Yellow) Urine Appearance (CLEAR) Urine pH (5-7) Ur Specific Gravit y (1.005-1.030) Urine Protein (Negative) Urine Glucose (UA) (Normal) Urine Ketones (Negative) Urine Blood (Negative) Urine Nitrate (Negative) Urine Bilirubin (NEGATIVE) Urine Urobilinogen (Negative) mg/dL Ur Leukocyte Payal ase (Negative) Urine RBC (0-2) /hpf Urine WBC (0-5) /hpf Ur Squamous Epith Cells (0-5) Amorphous Sediment Urine Bacteria (NONE) Hyaline Casts Ur Random Sodium 69 mmol/L Urine Creatinine 130 (39-259) mg/dL 06/03/20 06/03/20 Range/Units 09:00 11:49 WBC (4.0-10.0) 10^3/ uL RBC (4.1-5.3) 10^6/u L Hgb (11.7-16.6) g/dL Hct (42.0-52.0) % MCV (80-94) fL MCH (28.0-34.0) pg MCHC (30.0-36.0) g/dL RDW (12.1-15.1) % Plt Count (130-400) 10^3/c mm MPV (7.4-10.4) fL Neut % (Auto) % Lymph % (Auto) % [place] % (Auto) % Eos % (Auto) % Baso % (Auto) % Neut # (Auto) (1.8-7.7) 10^3/u L Lymph # (Auto) (0.8-4.8) 10^3/u L [place] # (Auto) (0.2-0.9) 10^3/u L Eos # (Auto) (0.0-0.8) 10^3/u L Baso # (Auto) (0.0-0.1) 10^3/u L Nucleated RBC % (a uto) % Nucleated RBCs # /100WBC PT (12.1-14.9) SECO NDS INR (0.8-1.2) Sodium (136-145) mmol/L Potassium (3.5-5.1) mmol/L Chloride (98-107) mmol/L Carbon Dioxide (22-29) mmol/L Anion Gap (5-19) BUN (8-23) mg/dL Creatinine (0.7-1.2) mg/dL GFR Calculation (90-130) mL/min Glucose (65-115) mg/dL POC Glucose 142 97 (70-110) mg/dL Calculated Osmolal ity (285-295) mOsm/k g Lactic Acid (0.5-2.2) mmol/L Calcium (8.5-10.5) mg/dL Total Bilirubin (0.15-1.2) mg/dL AST (0-40) U/L ALT (0-41) U/L Alkaline Phosphata se (40-130) IU/L Troponin T Baselin e (0-15) ng/L Troponin T 120 Min nondalton (0-15) ng/L Delta Troponin T (0-10) ABS# Troponin T Hi Sens 6Hr (0-15) ng/L Troponin T Hi Sens 6Hr Delta (0-12) ng/L Total Protein (6.6-8.7) g/dL Albumin (3.5-5.2) g/dL Globulin (1.3-4.6) g/dL Vitamin B12 (232-1245) pg/mL TSH (0.27-4.20) uIU/ mL Urine Color (Yellow) Urine Appearance (CLEAR) Urine pH (5-7) Ur Specific Gravit y (1.005-1.030) Urine Protein (Negative) Urine Glucose (UA) (Normal) Urine Ketones (Negative) Urine Blood (Negative) Urine Nitrate (Negative) Urine Bilirubin (NEGATIVE) Urine Urobilinogen (Negative) mg/dL Ur Leukocyte Payal ase (Negative) Urine RBC (0-2) /hpf Urine WBC (0-5) /hpf Ur Squamous Epith Cells (0-5) Amorphous Sediment Urine Bacteria (NONE) Hyaline Casts Ur Random Sodium mmol/L Urine Creatinine (39-259) mg/dL Discharge Plan Discharge Patient Disposition: Home Clinical Impression: Weakness, Fall Condition: Stable Discharge Orders: Discharge Order (Routine); Ordered 06/04/20 Ordered By: Konstantin Marcus Discharge Diet: Cardiac Discharge Activity: Resume usual activity Discharge Date/Time: 06/03/20 01:04 Coding Level of Care Code ED Linen Aide for Chg Fwd Exam Comprehensive Documented by User: Ricci Calderón MD 06/03/20 00:14 HPI - Fall General: Chief Complaint: Fall Stated Complaint: AMS/ MULTIPLE FALLS Time Seen by Provider: 06/02/20 18:15 PFSH ED PFSH: Medical History Arthritis BPH (benign prostatic hyperplasia) GERD (gastroesophageal reflux disease) 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 Mild cognitive impairment Osteoarthritis Pain management contract signed Schwannoma of spinal cord Tremor Surgical History History of fusion of cervical spine (~05/31/16) C5-6, C6-7 ACDFF, 05/31/2016, [facility] History of lumbar laminectomy (~11/29/16) 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 Multiple hematomas Course Vital Signs: Vital signs: Vital Signs Temperature 98.5 F 06/04/20 18:33 Pulse Rate 77 06/04/20 18:33 Respiratory Rate 16 06/04/20 18:33 Blood Pressure 109/68 06/04/20 18:33 Pulse Oximetry 95 06/04/20 18:33 MDM - Fall MDM Narrative: Medical decision making narrative: Allow presents with multiple falls and weakness. I took patient over from Dr. Fam and CT scan showed chronic fractures and a subtle fracture. Patient is stable for admission here I spoke to hospitalist will admit. Lab Data: Labs: Lab Results 06/02/20 06/02/20 06/02/20 Range/Units 18:25 18:53 18:53 WBC 9.1 (4.0-10.0) 10^3/ uL RBC 3.91 L (4.1-5.3) 10^6/u L Hgb 12.6 (11.7-16.6) g/dL Hct 39.5 L (42.0-52.0) % MCV 101.0 H (80-94) fL MCH 32.2 (28.0-34.0) pg MCHC 31.9 (30.0-36.0) g/dL RDW 15.7 H (12.1-15.1) % Plt Count 276 (130-400) 10^3/c mm MPV 11.0 H (7.4-10.4) fL Neut % (Auto) 70.9 % Lymph % (Auto) 22.0 % [place] % (Auto) 5.5 % Eos % (Auto) 0.7 % Baso % (Auto) 0.5 % Neut # (Auto) 6.47 (1.8-7.7) 10^3/u L Lymph # (Auto) 2.0 (0.8-4.8) 10^3/u L [place] # (Auto) 0.5 (0.2-0.9) 10^3/u L Eos # (Auto) 0.1 (0.0-0.8) 10^3/u L Baso # (Auto) 0.1 (0.0-0.1) 10^3/u L Nucleated RBC % (a uto) 0 % Nucleated RBCs # 0.0 /100WBC PT (12.1-14.9) SECO NDS INR (0.8-1.2) Sodium 138 (136-145) mmol/L Potassium 3.3 L (3.5-5.1) mmol/L Chloride 104 (98-107) mmol/L Carbon Dioxide 16 L (22-29) mmol/L Anion Gap 21.3 H (5-19) BUN 33 H (8-23) mg/dL Creatinine 2.6 H (0.7-1.2) mg/dL GFR Calculation 24.5 L (90-130) mL/min Glucose 99 (65-115) mg/dL POC Glucose 102 (70-110) mg/dL Calculated Osmolal ity 283 L (285-295) mOsm/k g Lactic Acid (0.5-2.2) mmol/L Calcium 7.9 L (8.5-10.5) mg/dL Total Bilirubin 0.2 (0.15-1.2) mg/dL AST 32 (0-40) U/L ALT 15 (0-41) U/L Alkaline Phosphata se 102 (40-130) IU/L Troponin T Baselin e (0-15) ng/L Troponin T 120 Min nondalton (0-15) ng/L Delta Troponin T (0-10) ABS# Troponin T Hi Sens 6Hr (0-15) ng/L Troponin T Hi Sens 6Hr Delta (0-12) ng/L Total Protein 6.7 (6.6-8.7) g/dL Albumin 3.3 L (3.5-5.2) g/dL Globulin 3.4 (1.3-4.6) g/dL Vitamin B12 (232-1245) pg/mL TSH (0.27-4.20) uIU/ mL Urine Color (Yellow) Urine Appearance (CLEAR) Urine pH (5-7) Ur Specific Gravit y (1.005-1.030) Urine Protein (Negative) Urine Glucose (UA) (Normal) Urine Ketones (Negative) Urine Blood (Negative) Urine Nitrate (Negative) Urine Bilirubin (NEGATIVE) Urine Urobilinogen (Negative) mg/dL Ur Leukocyte Payal ase (Negative) Urine RBC (0-2) /hpf Urine WBC (0-5) /hpf Ur Squamous Epith Cells (0-5) Amorphous Sediment Urine Bacteria (NONE) Hyaline Casts Ur Random Sodium mmol/L Urine Creatinine (39-259) mg/dL 06/02/20 06/02/20 06/02/20 Range/Units 18:53 18:53 18:53 WBC (4.0-10.0) 10^3/ uL RBC (4.1-5.3) 10^6/u L Hgb (11.7-16.6) g/dL Hct (42.0-52.0) % MCV (80-94) fL MCH (28.0-34.0) pg MCHC (30.0-36.0) g/dL RDW (12.1-15.1) % Plt Count (130-400) 10^3/c mm MPV (7.4-10.4) fL Neut % (Auto) % Lymph % (Auto) % [place] % (Auto) % Eos % (Auto) % Baso % (Auto) % Neut # (Auto) (1.8-7.7) 10^3/u L Lymph # (Auto) (0.8-4.8) 10^3/u L [place] # (Auto) (0.2-0.9) 10^3/u L Eos # (Auto) (0.0-0.8) 10^3/u L Baso # (Auto) (0.0-0.1) 10^3/u L Nucleated RBC % (a uto) % Nucleated RBCs # /100WBC PT 14.00 (12.1-14.9) SECO NDS INR 1.05 (0.8-1.2) Sodium (136-145) mmol/L Potassium (3.5-5.1) mmol/L Chloride (98-107) mmol/L Carbon Dioxide (22-29) mmol/L Anion Gap (5-19) BUN (8-23) mg/dL Creatinine (0.7-1.2) mg/dL GFR Calculation (90-130) mL/min Glucose (65-115) mg/dL POC Glucose (70-110) mg/dL Calculated Osmolal ity (285-295) mOsm/k g Lactic Acid 1.0 (0.5-2.2) mmol/L Calcium (8.5-10.5) mg/dL Total Bilirubin (0.15-1.2) mg/dL AST (0-40) U/L ALT (0-41) U/L Alkaline Phosphata se (40-130) IU/L Troponin T Baselin e 102 H* (0-15) ng/L Troponin T 120 Min nondalton (0-15) ng/L Delta Troponin T (0-10) ABS# Troponin T Hi Sens 6Hr (0-15) ng/L Troponin T Hi Sens 6Hr Delta (0-12) ng/L Total Protein (6.6-8.7) g/dL Albumin (3.5-5.2) g/dL Globulin (1.3-4.6) g/dL Vitamin B12 (232-1245) pg/mL TSH (0.27-4.20) uIU/ mL Urine Color (Yellow) Urine Appearance (CLEAR) Urine pH (5-7) Ur Specific Gravit y (1.005-1.030) Urine Protein (Negative) Urine Glucose (UA) (Normal) Urine Ketones (Negative) Urine Blood (Negative) Urine Nitrate (Negative) Urine Bilirubin (NEGATIVE) Urine Urobilinogen (Negative) mg/dL Ur Leukocyte Payal ase (Negative) Urine RBC (0-2) /hpf Urine WBC (0-5) /hpf Ur Squamous Epith Cells (0-5) Amorphous Sediment Urine Bacteria (NONE) Hyaline Casts Ur Random Sodium mmol/L Urine Creatinine (39-259) mg/dL 06/02/20 06/02/20 06/02/20 Range/Units 18:57 18:59 20:58 WBC (4.0-10.0) 10^3/ uL RBC (4.1-5.3) 10^6/u L Hgb (11.7-16.6) g/dL Hct (42.0-52.0) % MCV (80-94) fL MCH (28.0-34.0) pg MCHC (30.0-36.0) g/dL RDW (12.1-15.1) % Plt Count (130-400) 10^3/c mm MPV (7.4-10.4) fL Neut % (Auto) % Lymph % (Auto) % [place] % (Auto) % Eos % (Auto) % Baso % (Auto) % Neut # (Auto) (1.8-7.7) 10^3/u L Lymph # (Auto) (0.8-4.8) 10^3/u L [place] # (Auto) (0.2-0.9) 10^3/u L Eos # (Auto) (0.0-0.8) 10^3/u L Baso # (Auto) (0.0-0.1) 10^3/u L Nucleated RBC % (a uto) % Nucleated RBCs # /100WBC PT (12.1-14.9) SECO NDS INR (0.8-1.2) Sodium (136-145) mmol/L Potassium (3.5-5.1) mmol/L Chloride (98-107) mmol/L Carbon Dioxide (22-29) mmol/L Anion Gap (5-19) BUN (8-23) mg/dL Creatinine (0.7-1.2) mg/dL GFR Calculation (90-130) mL/min Glucose (65-115) mg/dL POC Glucose 93 (70-110) mg/dL Calculated Osmolal ity (285-295) mOsm/k g Lactic Acid (0.5-2.2) mmol/L Calcium (8.5-10.5) mg/dL Total Bilirubin (0.15-1.2) mg/dL AST (0-40) U/L ALT (0-41) U/L Alkaline Phosphata se (40-130) IU/L Troponin T Baselin e (0-15) ng/L Troponin T 120 Min nondalton 92.57 H (0-15) ng/L Delta Troponin T -9.43 L (0-10) ABS# Troponin T Hi Sens 6Hr (0-15) ng/L Troponin T Hi Sens 6Hr Delta (0-12) ng/L Total Protein (6.6-8.7) g/dL Albumin (3.5-5.2) g/dL Globulin (1.3-4.6) g/dL Vitamin B12 (232-1245) pg/mL TSH (0.27-4.20) uIU/ mL Urine Color Yellow (Yellow) Urine Appearance Hazy A (CLEAR) Urine pH 5 (5-7) Ur Specific Gravit y 1.020 (1.005-1.030) Urine Protein Neg (Negative) Urine Glucose (UA) Norm (Normal) Urine Ketones 1+ H (Negative) Urine Blood Neg (Negative) Urine Nitrate Negative (Negative) Urine Bilirubin Neg (NEGATIVE) Urine Urobilinogen Norm (Negative) mg/dL Ur Leukocyte Payal ase Negative (Negative) Urine RBC None (0-2) /hpf Urine WBC None (0-5) /hpf Ur Squamous Epith Cells 0-4 H (0-5) Amorphous Sediment 3+ Urine Bacteria Trace (NONE) Hyaline Casts 0-4 H Ur Random Sodium mmol/L Urine Creatinine (39-259) mg/dL 06/03/20 06/03/20 06/03/20 Range/Units 00:31 00:46 00:46 WBC (4.0-10.0) 10^3/ uL RBC (4.1-5.3) 10^6/u L Hgb (11.7-16.6) g/dL Hct (42.0-52.0) % MCV (80-94) fL MCH (28.0-34.0) pg MCHC (30.0-36.0) g/dL RDW (12.1-15.1) % Plt Count (130-400) 10^3/c mm MPV (7.4-10.4) fL Neut % (Auto) % Lymph % (Auto) % [place] % (Auto) % Eos % (Auto) % Baso % (Auto) % Neut # (Auto) (1.8-7.7) 10^3/u L Lymph # (Auto) (0.8-4.8) 10^3/u L [place] # (Auto) (0.2-0.9) 10^3/u L Eos # (Auto) (0.0-0.8) 10^3/u L Baso # (Auto) (0.0-0.1) 10^3/u L Nucleated RBC % (a uto) % Nucleated RBCs # /100WBC PT (12.1-14.9) SECO NDS INR (0.8-1.2) Sodium (136-145) mmol/L Potassium (3.5-5.1) mmol/L Chloride (98-107) mmol/L Carbon Dioxide (22-29) mmol/L Anion Gap (5-19) BUN (8-23) mg/dL Creatinine (0.7-1.2) mg/dL GFR Calculation (90-130) mL/min Glucose (65-115) mg/dL POC Glucose 73 (70-110) mg/dL Calculated Osmolal ity (285-295) mOsm/k g Lactic Acid (0.5-2.2) mmol/L Calcium (8.5-10.5) mg/dL Total Bilirubin (0.15-1.2) mg/dL AST (0-40) U/L ALT (0-41) U/L Alkaline Phosphata se (40-130) IU/L Troponin T Baselin e (0-15) ng/L Troponin T 120 Min nondalton (0-15) ng/L Delta Troponin T (0-10) ABS# Troponin T Hi Sens 6Hr 77.64 H (0-15) ng/L Troponin T Hi Sens 6Hr Delta -24.36 L (0-12) ng/L Total Protein (6.6-8.7) g/dL Albumin (3.5-5.2) g/dL Globulin (1.3-4.6) g/dL Vitamin B12 552 (232-1245) pg/mL TSH 2.96 (0.27-4.20) uIU/ mL Urine Color (Yellow) Urine Appearance (CLEAR) Urine pH (5-7) Ur Specific Gravit y (1.005-1.030) Urine Protein (Negative) Urine Glucose (UA) (Normal) Urine Ketones (Negative) Urine Blood (Negative) Urine Nitrate (Negative) Urine Bilirubin (NEGATIVE) Urine Urobilinogen (Negative) mg/dL Ur Leukocyte Payal ase (Negative) Urine RBC (0-2) /hpf Urine WBC (0-5) /hpf Ur Squamous Epith Cells (0-5) Amorphous Sediment Urine Bacteria (NONE) Hyaline Casts Ur Random Sodium mmol/L Urine Creatinine (39-259) mg/dL 06/03/20 06/03/20 06/03/20 Range/Units 02:40 04:40 04:51 WBC (4.0-10.0) 10^3/ uL RBC (4.1-5.3) 10^6/u L Hgb (11.7-16.6) g/dL Hct (42.0-52.0) % MCV (80-94) fL MCH (28.0-34.0) pg MCHC (30.0-36.0) g/dL RDW (12.1-15.1) % Plt Count (130-400) 10^3/c mm MPV (7.4-10.4) fL Neut % (Auto) % Lymph % (Auto) % [place] % (Auto) % Eos % (Auto) % Baso % (Auto) % Neut # (Auto) (1.8-7.7) 10^3/u L Lymph # (Auto) (0.8-4.8) 10^3/u L [place] # (Auto) (0.2-0.9) 10^3/u L Eos # (Auto) (0.0-0.8) 10^3/u L Baso # (Auto) (0.0-0.1) 10^3/u L Nucleated RBC % (a uto) % Nucleated RBCs # /100WBC PT (12.1-14.9) SECO NDS INR (0.8-1.2) Sodium 141 (136-145) mmol/L Potassium 3.7 (3.5-5.1) mmol/L Chloride 107 (98-107) mmol/L Carbon Dioxide 22 (22-29) mmol/L Anion Gap 15.7 (5-19) BUN 34 H (8-23) mg/dL Creatinine 2.0 H (0.7-1.2) mg/dL GFR Calculation 33.2 L (90-130) mL/min Glucose 130 H (65-115) mg/dL POC Glucose 118 (70-110) mg/dL Calculated Osmolal ity 291 (285-295) mOsm/k g Lactic Acid (0.5-2.2) mmol/L Calcium 7.6 L (8.5-10.5) mg/dL Total Bilirubin (0.15-1.2) mg/dL AST (0-40) U/L ALT (0-41) U/L Alkaline Phosphata se (40-130) IU/L Troponin T Baselin e (0-15) ng/L Troponin T 120 Min nondalton (0-15) ng/L Delta Troponin T (0-10) ABS# Troponin T Hi Sens 6Hr (0-15) ng/L Troponin T Hi Sens 6Hr Delta (0-12) ng/L Total Protein (6.6-8.7) g/dL Albumin (3.5-5.2) g/dL Globulin (1.3-4.6) g/dL Vitamin B12 (232-1245) pg/mL TSH (0.27-4.20) uIU/ mL Urine Color (Yellow) Urine Appearance (CLEAR) Urine pH (5-7) Ur Specific Gravit y (1.005-1.030) Urine Protein (Negative) Urine Glucose (UA) (Normal) Urine Ketones (Negative) Urine Blood (Negative) Urine Nitrate (Negative) Urine Bilirubin (NEGATIVE) Urine Urobilinogen (Negative) mg/dL Ur Leukocyte Payal ase (Negative) Urine RBC (0-2) /hpf Urine WBC (0-5) /hpf Ur Squamous Epith Cells (0-5) Amorphous Sediment Urine Bacteria (NONE) Hyaline Casts Ur Random Sodium 69 mmol/L Urine Creatinine 130 (39-259) mg/dL 06/03/20 06/03/20 Range/Units 09:00 11:49 WBC (4.0-10.0) 10^3/ uL RBC (4.1-5.3) 10^6/u L Hgb (11.7-16.6) g/dL Hct (42.0-52.0) % MCV (80-94) fL MCH (28.0-34.0) pg MCHC (30.0-36.0) g/dL RDW (12.1-15.1) % Plt Count (130-400) 10^3/c mm MPV (7.4-10.4) fL Neut % (Auto) % Lymph % (Auto) % [place] % (Auto) % Eos % (Auto) % Baso % (Auto) % Neut # (Auto) (1.8-7.7) 10^3/u L Lymph # (Auto) (0.8-4.8) 10^3/u L [place] # (Auto) (0.2-0.9) 10^3/u L Eos # (Auto) (0.0-0.8) 10^3/u L Baso # (Auto) (0.0-0.1) 10^3/u L Nucleated RBC % (a uto) % Nucleated RBCs # /100WBC PT (12.1-14.9) SECO NDS INR (0.8-1.2) Sodium (136-145) mmol/L Potassium (3.5-5.1) mmol/L Chloride (98-107) mmol/L Carbon Dioxide (22-29) mmol/L Anion Gap (5-19) BUN (8-23) mg/dL Creatinine (0.7-1.2) mg/dL GFR Calculation (90-130) mL/min Glucose (65-115) mg/dL POC Glucose 142 97 (70-110) mg/dL Calculated Osmolal ity (285-295) mOsm/k g Lactic Acid (0.5-2.2) mmol/L Calcium (8.5-10.5) mg/dL Total Bilirubin (0.15-1.2) mg/dL AST (0-40) U/L ALT (0-41) U/L Alkaline Phosphata se (40-130) IU/L Troponin T Baselin e (0-15) ng/L Troponin T 120 Min nondalton (0-15) ng/L Delta Troponin T (0-10) ABS# Troponin T Hi Sens 6Hr (0-15) ng/L Troponin T Hi Sens 6Hr Delta (0-12) ng/L Total Protein (6.6-8.7) g/dL Albumin (3.5-5.2) g/dL Globulin (1.3-4.6) g/dL Vitamin B12 (232-1245) pg/mL TSH (0.27-4.20) uIU/ mL Urine Color (Yellow) Urine Appearance (CLEAR) Urine pH (5-7) Ur Specific Gravit y (1.005-1.030) Urine Protein (Negative) Urine Glucose (UA) (Normal) Urine Ketones (Negative) Urine Blood (Negative) Urine Nitrate (Negative) Urine Bilirubin (NEGATIVE) Urine Urobilinogen (Negative) mg/dL Ur Leukocyte Payal ase (Negative) Urine RBC (0-2) /hpf Urine WBC (0-5) /hpf Ur Squamous Epith Cells (0-5) Amorphous Sediment Urine Bacteria (NONE) Hyaline Casts Ur Random Sodium mmol/L Urine Creatinine (39-259) mg/dL Discharge Plan Discharge Patient Disposition: Home Clinical Impression: Weakness, Fall Condition: Stable Discharge Orders: Discharge Order (Routine); Ordered 06/04/20 Ordered By: Konstantin Marcus Discharge Diet: Cardiac Discharge Activity: Resume usual activity Discharge Date/Time: 06/03/20 01:04 Coding Level of Care Code ED Linen Aide for [place] Fwd Exam Comprehensive
[2020-06-02 18:28] LABS: Glucose Point of Care 102 mg/dL (70-110)
[2020-06-02 19:01] VITALS: BP 132/78; PULSE 101; RESP 21; O2SAT 97
[2020-06-02 19:01] LABS: Glucose Point of Care 93 mg/dL (70-110)
[2020-06-02 19:05] LABS: Basophils # 0.1 10^3/uL (0.0-0.1); Basophils % 0.5 %; Eosinophils # 0.1 10^3/uL (0.0-0.8); Eosinophils % 0.7 %; Hematocrit 39.5 % (42.0-52.0); Hemoglobin 12.6 g/dL (11.7-16.6); Mean Corpuscular HGB Conc 31.9 g/dL (30.0-36.0); Mean Corpuscular Hemoglobin 32.2 pg (28.0-34.0); Monocytes # 0.5 10^3/uL (0.2-0.9); Monocytes % 5.5 %; Neutrophils # 6.47 10^3/uL (1.8-7.7); Neutrophils % 70.9 %; Nucleated Red Blood Cells % 0 %; Platelet Count 276 10^3/cmm (130-400); Red Blood Count 3.91 10^6/uL (4.1-5.3); Red Cell Distribution Width 15.7 % (12.1-15.1); White Blood Count 9.1 10^3/uL (4.0-10.0)
[2020-06-02 19:18] LABS: INR 1.05 (0.8-1.2)
[2020-06-02 19:25] LABS: Add Urine Microscopic? YES; Bilirubin Urine Neg (NEGATIVE); Blood Urine Neg (Negative); Glucose Urine UA Norm (Normal); Ketones Urine 1+ (Negative); Leukocyte Esterase Urine Negative (Negative); Nitrate Urine Negative (Negative); Protein Urine Neg (Negative); Urine Appearance Hazy (CLEAR); Urine Color Yellow (Yellow); Urobilinogen Urine Norm (Negative); pH Urine 5 (5-7)
[2020-06-02 19:26] LABS: Alanine Aminotransferase 15 U/L (0-41); Albumin Level 3.3 g/dL (3.5-5.2); Alkaline Phosphatase 102 IU/L (40-130); Anion Gap 21.3 (5-19); Aspartate Amino Transferase 32 U/L (0-40); Blood Urea Nitrogen 33 mg/dL (8-23); Calcium 7.9 mg/dL (8.5-10.5); Carbon Dioxide 16 mmol/L (22-29); Chloride 104 mmol/L (98-107); Globulin 3.4 g/dL (1.3-4.6); Glomerular Filtration Rate 24.5 mL/min (90-130); Glucose 99 mg/dL (65-115); Osmolality Calculated 283 mOsm/kg (285-295); Potassium 3.3 mmol/L (3.5-5.1); Sodium 138 mmol/L (136-145); Total Bilirubin 0.2 mg/dL (0.15-1.2); Total Protein 6.7 g/dL (6.6-8.7)
--- NOTE | 2020-06-02 19:33 | CTR_ITS ---
PROCEDURE INFORMATION: Exam: CT Maxillofacial Without Contrast Exam date and time: 06/02/2020 7:59 PM Age: 70 years old Clinical indication: Injury or trauma; Fall; Initial encounter; Blunt trauma (contusions or hematomas); Forehead; Additional info: Fall, facial injury TECHNIQUE: Imaging protocol: Computed tomography images of the face without contrast. Sagittal and coronal reformatted images were created and reviewed. Radiation optimization: All CT scans at this facility use at least one of these dose optimization techniques: automated exposure control; mA and/or kV adjustment per patient size (includes targeted exams where dose is matched to clinical indication); or iterative reconstruction. COMPARISON: No relevant prior studies available. RADIATION DOSE METRICS: Total DLP (mGy-cm): 784.13 FINDINGS: Orbits: Globes and lenses, extraocular muscles, and optic nerves are intact bilaterally. No acute intraorbital abnormality. Bones/joints: Patient has had a previous fusion in the visualized lower cervical spine. There is an age-indeterminate fracture of the left nasal bone. Multilevel degenerative changes of varying severity in the visualized spine. Insert TMJsBones/joints: Right and left pterygoid plates are intact. Mild right nasal septal deviation. Sinuses: Occlusion of the left ostiomeatal complex. Small mucus retention cyst and mild mucoperiosteal thickening in the left maxillary sinus. Small air-fluid level in the left maxillary sinus. Nasal cavity: Maile bullosa of the right and left middle turbinates. Dental: Cavitary and periodontal disease involving multiple mandibular teeth. Vasculature: Atherosclerotic changes in the visualized arteries. Soft tissues: Small right supraorbital scalp hematoma/contusion is partially visualized. No radiopaque foreign body. CT/CT facial bones wo con* [id number] IMPRESSION: 1. There is an age-indeterminate fracture of the left nasal bone. Recommend correlation with symptoms of pain in this area. 2. Small mucus retention cyst and mild mucoperiosteal thickening in the left maxillary sinus. 3. Small air-fluid level in the left maxillary sinus. This may represent acute sinusitis. Alternatively, this could represent hemorrhage in the sinus given history of trauma. 4. Small right supraorbital scalp hematoma/contusion is partially visualized. 5. Occlusion of the left ostiomeatal complex. 6. Incidental/nonacute findings are listed in the report. Radiation Dose CTDIVOL = (mGy): DLP = 784.13 (mGy-cm)
[2020-06-02 19:36] LABS: Squamous Epithelial Cell Urine 0-4 (0-5)
[2020-06-02 19:37] LABS: Add Urine Culture? No; Amorphous Sediment Urine 3+; Bacteria Urine TRACE; Hyaline Casts Urine 0-4
[2020-06-02 19:43] LABS: Troponin(5th) Baseline 102 ng/L (0-15)
--- NOTE | 2020-06-02 20:25 | ECG_ITS ---
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 Measurements Intervals [place] Rate: 79 P: 67 DC: 162 QRS: 55 QRSD: 94 T: 24 QT: 376 QTc: 432 Interpretive Statements SINUS RHYTHM Compared to ECG 04/20/2020 18:53:16 No significant changes Electronically Signed On 06-03-2020 17:29:12 CDT by Kiki Dominguez M.D. [id number]
[2020-06-02 21:02] VITALS: BP 119/75; PULSE 82; RESP 14; O2SAT 95
[2020-06-02 21:28] LABS: Troponin 5 2HR 92.57 ng/L (0-15)
--- NOTE | 2020-06-02 21:35 | CTR_ITS ---
PROCEDURE INFORMATION: Exam: CT Lumbar Spine Without Contrast Exam date and time: 06/02/2020 10:31 PM Age: 70 years old Clinical indication: Injury or trauma; Fall; Initial encounter; Blunt trauma (contusions or hematomas); Prior surgery; Additional info: Fall, back pain TECHNIQUE: Imaging protocol: Computed tomography images of the lumbar spine without contrast. Radiation optimization: All CT scans at this facility use at least one of these dose optimization techniques: automated exposure control; mA and/or kV adjustment per patient size (includes targeted exams where dose is matched to clinical indication); or iterative reconstruction. COMPARISON: [place] [id number] 01/04/2017 10:42 AM RADIATION DOSE METRICS: Total DLP (mGy-cm): 2432.41 FINDINGS: Vertebrae: There is a chronic moderate severity compression fracture status post vertebroplasty at L3. There is a chronic mild compression fracture status post vertebroplasty at T12. There is bilateral laminectomy at L1. No acute fracture in the lumbar spine. There is a chronic ununited fracture through the pars interarticularis on the left L1. There are healed fractures of the left L2 through L4 and right L4 through L5 transverse processes. There is no acute fracture. Discs/Spinal canal/Neural foramina: Moderate diffuse lumbar degenerative disease. There is mild multifactorial lower lumbar spinal stenosis. Intraperitoneal space: The visible portion of the pelvis and sacrum is intact. No acute intra-abdominal findings. Soft tissues: Paraspinal soft tissues are unremarkable. CT/CT lumbar spine wo con* [id number] IMPRESSION: 1. No acute fracture. 2. Chronic lumbar fractures described above. Radiation Dose CTDIVOL = (mGy): DLP = 2432.41 (mGy-cm)
--- NOTE | 2020-06-02 21:35 | CTR_ITS ---
PROCEDURE INFORMATION: Exam: CT Thoracic Spine Without Contrast Exam date and time: 06/02/2020 10:31 PM Age: 70 years old Clinical indication: Injury or trauma; Fall; Initial encounter; Blunt trauma (contusions or hematomas); Prior surgery; Additional info: Fall, pain TECHNIQUE: Imaging protocol: Computed tomography images of the thoracic spine without contrast. Radiation optimization: All CT scans at this facility use at least one of these dose optimization techniques: automated exposure control; mA and/or kV adjustment per patient size (includes targeted exams where dose is matched to clinical indication); or iterative reconstruction. COMPARISON: OT Thoracic Spine 2v AP/Lat [id number] 03/12/2016 2:22 PM RADIATION DOSE METRICS: Total DLP (mGy-cm): 2318.82 FINDINGS: Vertebrae: Intact lower cervical fusion noted. Alignment is normal. There is a chronic T12 compression fracture status post vertebroplasty. There is a subtle superior endplate compression fracture at T3 which is of indeterminate chronicity. Mild bilateral lower thoracic facet spondylosis. Discs/Spinal canal/Neural foramina: There is no spinal canal stenosis. Other bones/joints: Posterior elements are intact. There is a healed right 12th rib fracture. There is no acute fracture. Soft tissues: Paraspinal soft tissues are unremarkable. Lungs: There is subsegmental atelectasis in the lung bases. Mediastinum: There is a small sliding-type hiatal hernia. CT/CT thoracic spin wo con* [id number] IMPRESSION: 1. Subtle T3 superior endplate compression fracture of indeterminate chronicity. 2. Chronic T12 compression fracture status post vertebroplasty. Radiation Dose CTDIVOL = (mGy): DLP = 2318.82 (mGy-cm)
[2020-06-02] MEDS: ondansetron 2 mg/ML SDV 2 mL 4 MG IVP (21:42)
[2020-06-02 21:43] VITALS: RESP 16
[2020-06-02] MEDS: morphine 4 mg/mL SDV 1 mL IVP (21:43)
[2020-06-02 22:48] VITALS: BP 111/71; PULSE 86; RESP 14; O2SAT 97
[2020-06-02 23:44] VITALS: BP 104/67; PULSE 96; RESP 14; O2SAT 98
[2020-06-03] VITALS (9 sets, daily range): BP systolic 85–116; BP diastolic 49–72; PULSE 65–91; RESP 12–20; TEMP 36.3–37.4; O2SAT 93–100
--- NOTE | 2020-06-03 00:08 | P.HP_ITS ---
Providers/Chief Complaint Primary Care Provider: Raúl Keller DO Chief Complaint: AMS/ MULTIPLE FALLS History of Present Illness Ketan Sosa is a 70 year old male who has mild cognitive impairment, spinal cord nerve tumor, status post laminectomy, BPH, hypertension, chronic analgesics for his back pain was sent in from [facility] living [facility] because of increased confusion and recurrent falls. Patient is not able to give me any details, he is repetitive. I called assisted living facility who stated that for last 24 hours he has been very confused, sluggish, his p.o. intake has been decreased and he is very picky about what he wants to eat, most of the time he refuses his meals, they have not noticed any fever, vomiting. At baseline he is able to carry out conversation, walk on his own to go to the bathroom which he has not been able to do for last 24 hours, he felt 7 times in last 24 hours. No active seizure-like activity noticed, blood sugar was not checked at the facility. On arrival of EMS his blood sugar was in 70s, he was given D10, diagnostics in the ER revealed extreme dehydration, JOSE, hypoglycemia, extensive CT imaging revealed chronic fractures with acute subtle T3 fracture. UA did show ketones without any signs of UTI. EKG is unremarkable, troponin negative delta. I have started patient on D10 in the ER, repeat fingerstick/POC revealed blood glucose 73, at the time of my evaluation patient is repetitive, when I asked him what brought him to the hospital he replied knees gave up . Review of Systems General: Reports: ROS unobtainable due to medical condition (Hypoactive delirium secondary to metabolic encephalopathy and severe dehydration) Medications/Allergies Home Medications Medication Instructions Recorded Confirmed Last Taken Type acetaminophen 500 mg tablet 500 mg PO Q6H PRN 02/12/20 04/20/20 04/20/20 History aspirin 325 mg tablet 325 mg PO DAILY 02/12/20 04/20/20 04/20/20 History atorvastatin 40 mg tablet 40 mg PO DAILY 02/12/20 04/20/20 04/19/20 History ergocalciferol (vitamin D2) 1,250 1,250 mcg PO .WEEKLY cap 02/12/20 04/20/20 04/20/20 History mcg (50,000 unit) capsule gabapentin 300 mg capsule 300 mg PO DAILY 02/12/20 04/20/2004/19/20 History ibuprofen 600 mg tablet 600 mg PO Q8H PRN 02/12/20 04/20/20 Unknown History melatonin 5 mg capsule 5 mg PO BEDTIME cap 02/12/20 04/20/20 04/19/20 History primidone 50 mg tablet 250 mg PO QID 02/12/20 04/20/20 04/20/20 History sennosides 8.6 mg capsule 8.6 mg PO BID PRN 02/12/20 04/20/20 04/19/20 History topiramate 25 mg capsule,extended 75 mg PO BID cap 02/12/20 04/20/20 04/20/20 History release 24 hr Saccharomyces boulardii [Florastor] 250 mg PO TID 04/20/20 04/20/20 04/20/20 History baclofen 10 mg PO DAILY 04/20/20 04/20/20 04/20/20 History sodium phosphates [Enema 118 ml OR DAILY PRN 04/20/20 04/20/20 04/20/20 History Disposable] sulfamethoxazole-trimethoprim 1 tab PO BID 04/20/20 04/20/20 04/20/20 History [Bactrim DS] Allergies Allergy/AdvReac Type Severity Reaction Status Date / Time vancomycin Allergy unknown Verified 04/20/20 18:54 PFSH Acute PFSH: Medical History Arthritis BPH (benign prostatic hyperplasia) GERD (gastroesophageal reflux disease) Intracranial mass [facility] (current) use of opiate analgesic Mild cognitive impairment Osteoarthritis Pain management contract signed Schwannoma of spinal cord Tremor Surgical History History of fusion of cervical spine (~05/31/16) C5-6, C6-7 [place] [facility] [place] l[place]ctomy (~11/29/16) 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, extramedullary neoplasm, [place] [facility] [place] cervical [place] fusion Family History Other Essential tremor Social History Smoking and tobacco status: never smoked Alcohol intake: never Lives independently: Yes Housing: Assisted Living Facility Marital status: Single Current occupational status: retired History of recent travel: No Vitals/I&O/Wt Last Vital Signs Temp 98.4 F 06/02/20 18:12 Pulse 96 06/02/20 23:44 Resp 14 06/02/20 23:44 BP 104/67 06/02/20 23:44 Pulse Ox 98 06/02/20 23:44 Weight last 48 hrs Weight 68.039 kg Physical Exam Narrative: EXAM NARRATIVE: Extremely dehydrated, elderly male Dry buccal mucous membrane Afebrile, sinus rhythm, S1, S2 no signs of heart failure Abdomen soft nontender bowel sound present Patient is repetitive, short attention span, able to move his arms without any gross abnormality Bilateral breath sounds, diminished However saturating well on room air Legs without edema gangrene or ulcer Hypoactive delirium with underlying cognitive impairment Right pre-frontal area bruise, petechia purpura noticed no active bleeding Data : 06/02/20 18:53 06/02/20 18:53 A&P Assessment and plan (1) Weakness: Status: Acute (2) Fall: Status: Acute (3) Spondylosis of lumbar spine: Status: Acute (4) Dehydration: Status: Acute (5) Hypokalemia: Status: Acute (6) Thoracic spine fracture: Status: Acute (7) JOSE (acute kidney injury): Status: Acute (8) Acute delirium: Status: Acute Additional A&P Information Acute delirium Secondary to hypoglycemia and metabolic encephalopathy Severe dehydration Started patient on D10 at 50 mL/h, I am planning to switch his fluids to D5 half-normal with 20 mEq of KCl after 6 hours I would hold his baclofen, gabapentin and anxiolytics at this point He is afebrile, no signs of sepsis, Urinalysis did not reveal any signs of UTI, urinalysis positive for ketones Will check TSH, B12 level Acute kidney injury Secondary to dehydration Creatinine doubled from last admission creatinine level, previous creatinine level seems to be around 1 Hold NSAIDs Anticipating improvement with fluid resuscitation I will request Palacios catheter placement to monitor urine output, kidney ultrasound to rule out hydronephrosis Hypokalemia: Repleted Recurrent falls No active seizure, no arrhythmia noticed on EKG, I believe these are secondary to poor p.o. intake, dehydration and hypoglycemia Extensive upper body imaging reviewed, chronic compression fractures with acute subtle thoracic spine fracture Monitor for urinary retention, Polypharmacy, kindly reevaluate his medications at the time of discharge Full code listed as per the documentation from the facility Has power of packing clerk listed as well, Laurence Sosa Cardiac diet DVT prophylaxis: To be avoided because of recurrent history of falls, Analgesia with morphine for chronic compression fractures, bowel regimen added Physical therapy Attestations Medical Necessity Statement*: Anticipating discharge in less than 48 hours continued IV fluid resuscitation and management of hypoglycemia, Time Spent in Patient Care: (>than 50% of time spent in counselling and/or direct pt care on unit) . 35mins Coding Level of Care Code Acute Domestic Violence Advocate for Chg Fwd Diagnoses Weakness R53.1 Fall W19.XXXA Spondylosis of lumbar spine M47.816 Dehydration E86.0 Hypokalemia E87.6 Thoracic spine fracture S22.009A JOSE (acute kidney injury) N17.9 Acute delirium R41.0
[2020-06-03 00:34] LABS: Glucose Point of Care 73 mg/dL (70-110)
--- NOTE | 2020-06-03 01:20 | US_ITS ---
WS: [id number] ULTRASOUND RENAL TECHNIQUE: Ultrasound examination of both kidneys. CLINICAL INFORMATION: JOSE COMPARISON: None. FINDINGS: RIGHT: Right kidney is normal in size and appearance. Echogenicity: Normal. Cortical thickness: 1.5 cm; Normal. Hydronephrosis: None. Perinephric fluid: None. Right kidney measures: 9.5 cm x 5.4 cm x 5.3 cm. LEFT: Small left renal cyst measuring 1.7 x 1.3 CM. Left kidney is normal in size and appearance. Echogenicity: Normal. Cortical thickness: 1.1 cm; Normal. Hydronephrosis: None. Perinephric fluid: None. Left kidney measures: 11.2 cm x 3.5 cm x 5.0 cm. Normal visualized aorta. Fluid catheter. US/US renal BI* [id number] IMPRESSION: 1. Both kidneys are normal in appearance. No hydronephrosis. 2. Small left renal cyst measuring 1.7 x 1.3 cm 3. Palacios catheter.
[2020-06-03 01:21] LABS: Troponin 5 6HR 77.64 ng/L (0-15)
--- NOTE | 2020-06-03 01:27 | PC.NURSE ---
Patient Wallet Patient wallet with $50 suh locked in [facility].
[2020-06-03] MEDS: dextrose 10% 1,000 ML 50 ML IV (02:12)
[2020-06-03 03:06] LABS: Urine Creatinine 130 mg/dL (39-259); Urine Random Sodium 69 mmol/L
[2020-06-03 03:17] LABS: Thyroid Stimulating Hormone 2.96 uIU/mL (0.27-4.20); Vitamin B12 552 pg/mL (232-1245)
[2020-06-03 05:28] LABS: Anion Gap 15.7 (5-19); Blood Urea Nitrogen 34 mg/dL (8-23); Calcium 7.6 mg/dL (8.5-10.5); Carbon Dioxide 22 mmol/L (22-29); Chloride 107 mmol/L (98-107); Glomerular Filtration Rate 33.2 mL/min (90-130); Glucose 130 mg/dL (65-115); Osmolality Calculated 291 mOsm/kg (285-295); Potassium 3.7 mmol/L (3.5-5.1); Sodium 141 mmol/L (136-145)
[2020-06-03 05:29] LABS: Glucose Point of Care 118 mg/dL (70-110)
[2020-06-03 09:03] LABS: Glucose Point of Care 142 mg/dL (70-110)
[2020-06-03] MEDS: lactated ringers 500 ML 999 ML IV (10:25)
[2020-06-03] MEDS: D5-NS 0.45% + KCL 20 mEq 20 MEQ/1,000 ML BAG 30 MEQ IV (10:25)
--- NOTE | 2020-06-03 11:50 | P.PN_ITS ---
Subjective Subjective: Interval history: This morning patient is alert oriented x1, knows his name, does not know where he is, does not know the date or time, he keeps telling me how much pints of blood taken to take from me, he is quite concerned with his IV in his right arm, does follow commands at some times, but is quite confused at this point I spoke to prison staff, they tell me that patient's normal alert oriented x3, he ambulates in a wheelchair, patient has had total of 7 falls, the story is is that patient had a bed alarm to notify nursing staff if he gets out of bed, however patient was quite irritated with the bed alarm, so he actually remove the bed alarm multiple times, actually took the bed alarm at one point in the threw it behind the nursing station and went back to his room and shut the door. They also tell me that recently is been a bit more agitated than his normal self. Has intermittent as feels loads of confusion. But no persistent confusion or disorientation really recently. No other significant complaints except a several falls. Vitals/I&O/Wt Last Vital Signs Temp 97.6 F 06/03/20 08:00 Pulse 65 06/03/20 08:00 Resp 16 06/03/20 08:00 BP 96/62 06/03/20 08:38 Pulse Ox 100 06/03/20 08:00 06/02/20 06/03/20 06/03/20 22:59 06:59 14:59 Intake Total 120 / 120 Balance 120 / 120 Weight last 48 hrs Weight 68.039 kg Physical Exam Const: COMMON NORMALS: no acute distress and alert EXAM LIMITATIONS: altered mental status GENERAL APPEARANCE: cooperative ORIENTATION/CONSCIOUSNESS: Yes oriented to person; not oriented to place and not oriented to time HENMT: COMMON NORMALS: normocephalic HEAD & SCALP: normocephalic Eye: COMMON NORMALS: Equal, round and reactive pupils present PUPIL: Yes Equal, round and reactive pupils present Neck/C-Spine: COMMON NORMALS: no JVD Resp: COMMON NORMALS: normal respiratory effort, No retractions, No use of accessory muscles and clear to auscultation bilaterally AUSCULTATION: clear to auscultation bilaterally Cardio: COMMON NORMALS: no JVD, regular rate, regular rhythm, S1 normal heart sound present and S2 normal heart sound present RATE: regular rate RHYTHM: regular rhythm HEART SOUNDS: S1 normal heart sound present and S2 normal heart sound present GI: COMMON NORMALS: Normal to inspection, nondistended, normoactive bowel sounds present, Soft to palpation, non-tender, No hepatosplenomegaly present, no masses and no bruits PALPATION: Yes Soft to palpation and Yes No hepatosple nomegaly present Extremity: COMMON NORMALS: capillary refill normal, no clubbing, cyanosis or edema, no calf tenderness and no pedal edema Neuro: SENSORIUM/ORIENTATION: Yes alert, Yes oriented to person, No oriented to place, No oriented to time, Yes Orientation impaired and Yes fluctuating sensorium Skin: NARRATIVE SKIN EXAM: Bruise above the right orbit Urinary Catheter Management^: Palacios: Cath Placed During This Visit: yes Urinary Catheter Date of Insertion: 06/03/20 Urinary Catheter Time of Insertion: 02:44 Data : 06/02/20 18:53 06/03/20 04:51 A&P Assessment and plan (1) Weakness: Status: Acute (2) Fall: Status: Acute (3) Spondylosis of lumbar spine: Status: Acute (4) Dehydration: Status: Acute (5) Hypokalemia: Status: Acute (6) Thoracic spine fracture: Status: Acute (7) JOSE (acute kidney injury): Status: Acute (8) Acute delirium: Status: Acute (9) NSTEMI (non-ST elevated myocardial infarction): Status: Acute Additional A&P Information Acute delirium Secondary to hypoglycemia and metabolic encephalopathy Severe dehydration D5 half-normal I would hold his baclofen, gabapentin and anxiolytics at this point He is afebrile, no signs of sepsis, Will start on Rocephin for possible UTI TSH, B12 level within normal limits Acute kidney injury Secondary to dehydration Creatinine doubled from last admission creatinine level, previous creatinine level seems to be around 1 Hold NSAIDs Anticipating improvement with fluid resuscitation I will request Palacios catheter placement to monitor urine output, kidney ultrasound to rule out hydronephrosis Hypokalemia: Repleted NSTEMI Likely supply demand ischemia, acute kidney injury Baseline troponin I 02, 6-hour 77.64, delta of -24.36, no complaints of chest pain EKG no acute ST-T wave changes Recurrent falls - 7 falls according to prison -Has a fracture of left nasal bone age indeterminate, small right supraorbital scalp hematoma/contusion, chronic moderate severe compression status post vertebroplasty L3, mild compression fractures status post vertebroplasty T12, healed fractures of L2-L4, right L4-L5, subtle T3 superior endplate compression fracture, No active seizure, no arrhythmia noticed on EKG, I believe these are secondary to poor p.o. intake, dehydration and hypoglycemia Extensive upper body imaging reviewed, chronic compression fractures with acute subtle thoracic spine fracture Monitor for urinary retention, Polypharmacy, kindly reevaluate his medications at the time of discharge Full code listed as per the documentation from the facility His next of kin, DPO is his sister Cardiac diet DVT prophylaxis: To be avoided because of recurrent history of falls, Analgesia with morphine for chronic compression fractures, bowel regimen added Physical therapy Attestations Medical Necessity Statement*: Patient requires hospitalization, for acute delirium, JOSE, hyperkalemia, recurrent falls, nstemi Coding Level of Care Code Acute Medication Care Manager for [facility] Fwd Diagnoses Weakness R53.1 Fall W19.XXXA Spondylosis of lumbar spine M47.816 Dehydration E86.0 Hypokalemia E87.6 Thoracic spine fracture S22.009A JOSE (acute kidney injury) N17.9 Acute delirium R41.0 NSTEMI (non-ST elevated myocardial infarction) I21.4
[2020-06-03 11:51] LABS: Glucose Point of Care 97 mg/dL (70-110)
[2020-06-03] MEDS: lactated ringers 1,000 ML 999 ML (12:42)
[2020-06-03] MEDS: cefTRIAXone 1,000 MG in sodium chloride 0.9% (plus) 50 ML 100 MG IV (13:53)
[2020-06-03] MEDS: dextrose 5%-sod chloride 0.45% 1,000 ML 100 ML IV ×2 (13:53→23:02)
[2020-06-03] MEDS: primidone 50 mg Tablet 250 MG PO ×2 (13:56→22:34)
[2020-06-04] VITALS (7 sets, daily range): BP systolic 93–121; BP diastolic 59–72; PULSE 77–89; RESP 16–18; TEMP 36.8–37; O2SAT 95–96
[2020-06-04 05:18] LABS: Basophils % 0.6 %; Eosinophils # 0.2 10^3/uL (0.0-0.8); Eosinophils % 3.2 %; Hematocrit 37.9 % (42.0-52.0); Hemoglobin 12.5 g/dL (11.7-16.6); Lymphocytes # 1.8 10^3/uL (0.8-4.8); Lymphocytes % 27.5 %; Mean Corpuscular Hemoglobin 32.7 pg (28.0-34.0); Mean Corpuscular Volume 99.2 fL (80-94); Mean Platelet Volume 11.3 fL (7.4-10.4); Monocytes # 0.5 10^3/uL (0.2-0.9); Monocytes % 7.4 %; Neutrophils # 4.02 10^3/uL (1.8-7.7); Nucleated Red Blood Cells % 0 %; Platelet Count 275 10^3/cmm (130-400); Red Blood Count 3.82 10^6/uL (4.1-5.3); Red Cell Distribution Width 15.6 % (12.1-15.1); White Blood Count 6.6 10^3/uL (4.0-10.0)
[2020-06-04 05:41] LABS: Alanine Aminotransferase 17 U/L (0-41); Albumin Level 3.2 g/dL (3.5-5.2); Alkaline Phosphatase 159 IU/L (40-130); Aspartate Amino Transferase 35 U/L (0-40); Blood Urea Nitrogen 14 mg/dL (8-23); C Reactive Protein 23.3 mg/L (0.0-4.9); Calcium 7.8 mg/dL (8.5-10.5); Carbon Dioxide 27 mmol/L (22-29); Chloride 106 mmol/L (98-107); Globulin 3.7 g/dL (1.3-4.6); Glomerular Filtration Rate 73.9 mL/min (90-130); Glucose 119 mg/dL (65-115); Magnesium 1.8 mg/dL (1.7-2.3); Osmolality Calculated 291 mOsm/kg (285-295); Phosphorus 2.3 mg/dL (2.5-4.5); Sodium 142 mmol/L (136-145); Total Bilirubin 0.3 mg/dL (0.15-1.2); Total Protein 6.9 g/dL (6.6-8.7)
[2020-06-04 07:16] LABS: Glucose Point of Care 132 mg/dL (70-110)
[2020-06-04] MEDS: sennosides-docusate Tablet 1 TAB PO (08:35)
[2020-06-04] MEDS: atorvastatin 40 mg Tablet PO (08:35)
[2020-06-04] MEDS: baclofen 10 mg Tablet PO (08:35)
[2020-06-04] MEDS: aspirin 325 mg Tablet PO (08:35)
[2020-06-04] MEDS: dextrose 5%-sod chloride 0.45% 1,000 ML 100 ML IV (08:42)
--- NOTE | 2020-06-04 10:00 | PC.NURSE ---
Patient's Palacios Catheter removed at this time intact. Patient sitting in his reclining chair at his request. Patient is alert to self.
[2020-06-04] MEDS: cefTRIAXone 1,000 MG in sodium chloride 0.9% (plus) 50 ML 100 MG IV (10:44)
[2020-06-04 11:09] LABS: Glucose Point of Care 116 mg/dL (70-110)
--- NOTE | 2020-06-04 11:36 | PM.DCS ---
Discharge Providers Date of Admission: 06/03/20 16:27 Date of Discharge: June 04, 2020 Attending Provider at Admission: Kiki Arechiga MD Attending Provider at Discharge: Konstantin Marcus MD Primary Care Provider: Raúl Keller DO Diagnoses at Discharge Discharge Diagnosis (1) Weakness: Status: Acute (2) Fall: Status: Acute (3) Spondylosis of lumbar spine: Status: Acute (4) Dehydration: Status: Acute (5) Hypokalemia: Status: Acute (6) Thoracic spine fracture: Status: Acute (7) JOSE (acute kidney injury): Status: Acute (8) Acute delirium: Status: Acute (9) NSTEMI (non-ST elevated myocardial infarction): Status: Acute Reason for Visit Reason for Visit: AMS/ MULTIPLE FALLS Hospital Course Discharge Summary: This is a 70-year-old male with a past medical history of lumbar radiculopathy, history of multiple back surgeries, history of schwannoma of the spinal cord, BPH, hypertension, on chronic analgesic for back pain who was sent from [facility] because of increased confusion and recurrent falls. Patient was admitted for acute delirium secondary to hypoglycemia and metabolic encephalopathy and dehydration, patient was found to be hypoglycemic on admission, blood sugars in the 70s, received D10, followed by D5 normal saline, blood sugars improved, mentation improved. Hypoglycemia likely secondary to poor oral intake, blood sugars were reasonable during his hospital admission. Patient was discharged on instructions to increase oral intake, protein shakes 2 times daily, residential was advised to check fingerstick blood sugars twice daily for the next week. Patient was found also to have an acute kidney injury secondary dehydration during his hospital admission, creatinine as high as 2.6, received normal saline, creatinine improved, urine output improved, renal ultrasound had no acute findings. Creatinine on discharge 1.0, patient was advised to drink plenty of electrolyte balance fluids. For possible UTI, discharged on 5 remaining days of Bactrim. Patient was also found to have NSTEMI, during his hospitalization, likely related to supply demand ischemia related to his fall and dehydration, and acute kidney injury, there was a downtrend in his troponins, 6-hour was 77.64, delta of -24.36, no complaints of chest pain, no complaints of shortness of breath, EKG no acute ST-T wave changes. Discharged on his home aspirin, statin. Patient during his hospital admission was found to have a left nasal bone fracture age-indeterminate, right small supraorbital scalp hematoma/contusion, chronic moderate severe compression status post vertebroplasty L3, mild compression fractures status post vertebroplasty T12, healed fractures of L2-L4, right L4-L5, subtle T3 superior endplate compression fracture. After discussion with residential staff, it was learned that patient quite frequently ambulates on his own AGAINST MEDICAL ADVICE, he removes his bed alarm, at times he would remove the bed alarm and thrown it behind the nursing station and locks himself in his room. According to nursing staff, he has had 7 falls in the last few days. I had an extensive discussion with patient, about his risk of falls, risk of significant morbidity and mortality associated with falls, he should comply with nursing staff instructions with a bed alarm, and should ambulate with nursing staff supervision. I was concerned for the possibility of parkinsonian features and unsteadiness associated with parkinsonian as he has a resting tremor. I have started him on Sinemet, with a close follow-up with neurology as outpatient. For his new subtle T3 endplate compression fracture, I have prescribed him with a short supply of Parrott, continue physical therapy, and to follow-up with Dr. Mckeon as outpatient. Physical Exam Const: COMMON NORMALS: no acute distress and alert GENERAL APPEARANCE: cooperative and comfortable ORIENTATION/CONSCIOUSNESS: Yes oriented to person and Yes oriented to place; not oriented to time HENMT: COMMON NORMALS: normocephalic HEAD & SCALP: normocephalic OTHER: Patient has a bruise, over the right orbit Eye: COMMON NORMALS: Equal, round and reactive pupils present, EOMs intact bilaterally and no papilledema GENERAL EYE: appearance normal, both eyes and all related structures PUPIL: Yes Equal, round and reactive pupils present DIRECT OPHTHALMOSCOPY: Yes no papilledema Neck/C-Spine: COMMON NORMALS: full ROM, no lymphadenopathy, no JVD and Thyroid normal THYROID: Thyroid normal Lymph: LYMPHATIC: no lymphadenopathy noted Resp: COMMON NORMALS: normal respiratory effort, No retractions, No use of accessory muscles and clear to auscultation bilaterally AUSCULTATION: clear to auscultation bilaterally Cardio: COMMON NORMALS: no JVD, regular rate, regular rhythm, S1 normal heart sound present, S2 normal heart sound present, No gallops present (Cardio), No clicks present (Cardio) and No murmurs present (Cardio) RATE: regular rate RHYTHM: regular rhythm HEART SOUNDS: S1 normal heart sound present and S2 normal heart sound present GI: COMMON NORMALS: Normal to inspection, nondistended, normoactive bowel sounds present, Soft to palpation, non-tender and No hepatosplenomegaly present PALPATION: Yes Soft to palpation and Yes No hepatosplenomegaly present Extremity: COMMON NORMALS: normal to inspection, full ROM and no pedal edema Neuro: COMMON NORMALS: CN's II-XII intact bilaterally, moves all extremities and no focal motor deficits SENSORIUM/ORIENTATION: Yes alert, Yes oriented to person, Yes oriented to place and No oriented to time Psych: COMMON NORMALS: mental status grossly normal Skin: NARRATIVE SKIN EXAM: Multiple areas of bruising Urinary Catheter Management^: Palacios: Cath Placed During This Visit: yes, but has since been removed by the nurse Reason for Continuing Indwelling Catheter: Decision to DC Catheter Urinary Catheter Date of Insertion: 06/03/20 Urinary Catheter Time of Insertion: 02:44 Date Urinary Catheter Removed: 06/04/20 Time Urinary Catheter Discontinued: 10:00 Discharge Data Data Completed and Pending: Completed Studies During Hospitalization Category Date Time Status CT facial bones w o con* [id number] Urgen t Cat Scan 06/02/20 19:[address] head wo con* 7 0450 Stat Cat Scan 06/02/20 18:[address] lumbar spine w o con* [id number] Urgen t Cat Scan 06/02/20 21:[address] thoracic spin wo con* [id number] Urge nt Cat Scan 06/02/20 21:35 Completed XR chest 1V sandor ble [id number] Stat Exams 06/02/20 18:24 Completed US renal BI* [id number] Routine Ultrasound 06/03/20 01:20 Completed Pending at discharge Category Date Time Status C Reactive Protei n AM LABS Lab 06/05/20 04:00 Ordered C Reactive Protei n AM LABS Lab 06/06/20 04:00 Ordered Complete Blood Co unt w/Auto AM LABS Lab 06/05/20 04:00 Ordered Complete Blood Co unt w/Auto AM LABS Lab 06/06/20 04:00 Ordered Comprehensive Met abolic Panel AM LA BS Lab 06/05/20 04:00 Ordered Comprehensive Met abolic Panel AM LA BS Lab 06/06/20 04:00 Ordered Magnesium AM LABS Lab 06/05/20 04:00 Ordered Magnesium AM LABS Lab 06/06/20 04:00 Ordered Phosphorus AM LAB S Lab 06/05/20 04:00 Ordered Phosphorus AM LAB S Lab 06/06/20 04:00 Ordered Labs from last 24 hours 06/04/20 06/04/20 06/04/20 11:03 06:57 04:40 WBC RBC Hgb Hct MCV MCH MCHC RDW Plt Count MPV Neut % (Auto) Lymph % (Auto) [place] % (Auto) Eos % (Auto) Baso % (Auto) Neut # (Auto) Lymph # (Auto) [place] # (Auto) Eos # (Auto) Baso # (Auto) Nucleated RBC % (a uto) Nucleated RBCs # Sodium 142 Potassium 3.0 L Chloride 106 Carbon Dioxide 27 Anion Gap 12.0 BUN 14 Creatinine 1.0 GFR Calculation 73.9 L Glucose 119 H POC Glucose 116 132 Calculated Osmolal ity 291 Calcium 7.8 L Phosphorus 2.3 L Magnesium 1.8 Total Bilirubin 0.3 AST 35 ALT 17 Alkaline Phosphata se 159 H C-Reactive Protein 23.3 H Total Protein 6.9 Albumin 3.2 L Globulin 3.7 06/04/20 06/03/20 04:40 11:49 WBC 6.6 RBC 3.82 L Hgb 12.5 Hct 37.9 L MCV 99.2 H MCH 32.7 MCHC 33.0 RDW 15.6 H Plt Count 275 MPV 11.3 H Neut % (Auto) 61.0 Lymph % (Auto) 27.5 [place] % (Auto) 7.4 Eos % (Auto) 3.2 Baso % (Auto) 0.6 Neut # (Auto) 4.02 Lymph # (Auto) 1.8 [place] # (Auto) 0.5 Eos # (Auto) 0.2 Baso # (Auto) 0.0 Nucleated RBC % (a uto) 0 Nucleated RBCs # 0.0 Sodium Potassium Chloride Carbon Dioxide Anion Gap BUN Creatinine GFR Calculation Glucose POC Glucose 97 Calculated Osmolal ity Calcium Phosphorus Magnesium Total Bilirubin AST ALT Alkaline Phosphata se C-Reactive Protein Total Protein Albumin Globulin Vitals: Last Vital Signs Temp 98.6 F 06/04/20 11:23 Pulse 78 06/04/20 11:23 Resp 18 06/04/20 11:23 BP 93/59 08/26/20 11:23 Pulse Ox 96 06/04/20 11:23 Discharge Plan Discharge Patient Disposition: Xfer SNF Condition: Stable Prescriptions: New Adult Low Dose Aspirin 81 mg tablet,delayed release (DR/EC) 81 mg PO DAILY 30 Days Qty: 30 RF: 0 Parrott 5-325 mg tablet 1 tab PO BID PRN (Reason: pain) 7 Days Qty: 14 RF: 0 Bactrim DS 800-160 mg tablet 1 tab PO BID 5 Days Qty: 10 RF: 0 Sinemet 10-100 mg tablet 1 tab PO BID 30 Days Qty: 60 RF: 0 Klor-Con M20 20 mEq tablet,ER particles/crystals 20 meq PO DAILY 30 Days Qty: 30 RF: 0 Continued primidone 50 mg tablet 100 mg PO QID RF: 0 acetaminophen [Tylenol Extra Strength] 500 mg tablet 500 - 1,000 mg PO TID PRN (Reason: Pain) RF: 0 ibuprofen 600 mg tablet 600 mg PO Q6H PRN (Reason: Pain) RF: 0 atorvastatin 40 mg tablet 40 mg PO QPM RF: 0 senna 8.6 mg capsule 8.6 mg PO DAILY RF: 0 ergocalciferol (vitamin D2) [Vitamin D2] 1,250 mcg (50,000 unit) capsule 1,250 mcg PO Q7D RF: 0 Enema Disposable 19-7 gram/118 mL Enema 118 ml LA DAILY PRN (Reason: Constipation) RF: 0 DHS Zinc 2 % Shampoo See Rx Instructions .ROUTE .COMPLEX RF: 0 benzoyl peroxide 5 % Gel See Rx Instructions .ROUTE .COMPLEX RF: 0 topiramate 25 mg tablet 75 mg PO BID RF: 0 Milk of Magnesia 400 mg/5 mL Suspension 30 ml PO DAILY PRN (Reason: Constipation) RF: 0 Nitrostat 0.4 mg Tablet, Sublingual 0.4 mg SUBLINGUAL Q5M PRN (Reason: Chest Pain) RF: 0 Hibiclens 4 % Liquid See Rx Instructions .ROUTE .COMPLEX RF: 0 bisacodyl 5 mg Tablet 5 mg PO DAILY PRN (Reason: Constipation) RF: 0 Biofreeze (menthol) 4 % Gel See Rx Instructions .ROUTE .COMPLEX RF: 0 hydrocortisone See Rx Instructions .ROUTE .COMPLEX RF: 0 Discontinued aspirin 325 mg tablet 325 mg PO DAILY RF: 0 Discharge Orders: Discharge Order (Routine); Ordered 06/04/20 Ordered By: Konstantin Marcus Other Ambulatory Orders: Complete Blood Count w/Auto (Routine) Timeframe: 1 Week Location: Determined by Patient Ordered By: Konstantin Marcus Comprehensive Metabolic Panel (Routine) Timeframe: 1 Week Facility: [facility] - Location: Lab - Main Lab Ordered By: Konstantin Marcus Referrals: Diane Wu MD [Physician] - 1 month (Parkinsonism tremor, falls) Raúl Keller DO [Primary Care Provider] - 06/11/20 9:40 am Delroy Mckeon MD [Physician] - 1 month (new t3 endplate fracture) Discharge Diet: Cardiac Discharge Activity: Resume usual activity Patient Instructions: Dehydration - Adult, Sulfamethoxazole/Trimethoprim (By mouth), Carbidopa/Levodopa (By mouth), Potassium Chloride (By mouth), Aspirin (By mouth), Hydrocodone (By mouth), Myocardial Infarction (DC), Acute Kidney Injury (DC), Hypokalemia (DC), Acute Delirium (DC), Weakness (GEN) Activity Restrictions/Additional Instructions: -Drink plenty of electrolyte balance fluids -Check fingerstick blood sugars 2-3 times daily, for the next week due to hypoglycemia -Protein shakes twice daily Discharge Attestations Time Spent in Discharge Care*: less than 30 min Quality Metrics Clinical Quality Measures During this hospital stay, did patient experience: None Coding Level of Care Code Acute Demurrage Man for Chg Fwd Exam Comprehensive Diagnoses Weakness R53.1 Fall W19.XXXA Spondylosis of lumbar spine M47.816 Dehydration E86.0 Hypokalemia E87.6 Thoracic spine fracture S22.009A JOSE (acute kidney injury) N17.9 Acute delirium R41.0 NSTEMI (non-ST elevated myocardial infarction) I21.4
--- NOTE | 2020-06-04 14:10 | PC.CHAP ---
Pastoral Care Encounter/Spiritual Assessment Type of Contact [] Declined special education itinerant teacher visit [] Patient/Family/Request visit [] Outpatient visit [] Follow-up visit [] Physician referral [] Code/Alert [X] Routine visit [] Staff referral [] Actively dying [] Patient sleeping [] Family support [] [] Out of room [] Palliative care [] [] Receiving care in room [] Pre-surgical visit [] Trauma [] Long length of stay [] ICU visit [] Other: Relational/Emotional Strength [] Patient feels connected with others/family/visitors/staff [] Distress [] Loneliness/isolation [] Abandonment Spirituality of Patient [] Person of Geeta [] Attends Mosque of their Geeta [] Believes in Prayer [] Reads Bible or Restorationist materials [] There are Spiritual issues to be addressed Furnace Roaster Interventions [] Prayer [] Active listening [] Non-anxious presence [] Spiritual/emotional support [] Crisis/trauma care [] Spiritual counseling [] Bereavement support [] Provided bereavement packet [] Provided Bible/devotional materials [] Provided toy/stuffed animal, coloring book to patient or family member [] Provided Communion [] Anointing/[place] [] Salvation [] Completed spiritual assessment [] Other: Impact on Illness or Injury [] Angry [] Fearful [] Anxious [] Often cries [] Exhaustion [] Unable to work [] Unable to attend oriental orthodox [] Unable to walk/stand [] Unable to read [] Unable to drive [] Unable to eat/drink [] Unable to sleep [] Unable to be with family [] Patient intubated [] Other: Summary Time spent with patient
--- NOTE | 2020-06-04 15:34 | PC.NURSE ---
Report called to Veronica Doshi RN at [facility]
[2020-06-04 17:15] LABS: Glucose Point of Care 129 mg/dL (70-110)
--- NOTE | 2020-06-04 17:31 | PC.NURSE ---
Notified Veronica at the custodial that patient just now left and he refused to let this typewriter operator automatic remove the EKG patches before he left. Veronica states she will take them off when he arrives there.
--- NOTE | 2020-06-04 17:45 | PC.NURSE ---
Patient discharged at this time. [facility] back with his $ 50.00 in it. Witnessed by Angela CHAPMAN Patient signed for his Wallet. Patient is alert to self. Respirations even and non-labored on room air.
== END 2020-06-04 17:35 | disposition skilled nursing facility (03) | DRG 280 ==
LOC: ER 23:58 → MEDSURG 06-03 00:23
PROVIDERS: Emergency Medicine; Admitting Provider Internal Medicine; PCP Family Medicine; Visit Provider Family Medicine
DX: I21.4 Non-ST elevation (NSTEMI) myocardial infarction (principal); G93.41 Metabolic encephalopathy; S22.009A Unspecified fracture of unspecified thoracic vertebra, initial encounter for closed fracture; N17.9 Acute kidney failure, unspecified; N39.0 Urinary tract infection, site not specified; W19.XXXA Unspecified fall, initial encounter; M47.816 Spondylosis without myelopathy or radiculopathy, lumbar region; E86.0 Dehydration; E87.6 Hypokalemia; D36.10 Benign neoplasm of peripheral nerves and autonomic nervous system, unspecified; Z98.1 Arthrodesis status; N40.0 Benign prostatic hyperplasia without lower urinary tract symptoms; I10 Essential (primary) hypertension; R29.6 Repeated falls; E16.2 Hypoglycemia, unspecified; M19.90 Unspecified osteoarthritis, unspecified site; K21.9 Gastro-esophageal reflux disease without esophagitis; Z79.891 Long term (current) use of opiate analgesic; S00.03XA Contusion of scalp, initial encounter; S02.2XXA Fracture of nasal bones, initial encounter for closed fracture; R25.1 Tremor, unspecified; I24.8 Other forms of acute ischemic heart disease; G31.84 Mild cognitive impairment of uncertain or unknown etiology
CPT/HCPCS: 12345; 36415; 36416; 51702; 70450; 70486; 71045; 72128; 72131; 76770; 80048; 80053; 81001; 82570; 82607; 82962; 83605; 83735; 84100; 84300; 84443; 84484; 85025; 85610; 86140; 93005; 96375; 97110; 97162; 97166; 97530; 99283; G0378; J0696; J2270; J2405; J7799

== ENCOUNTER 2021-03-27 13:34 | Outpatient (CLI) | payer MEDICARE, MEDICAID, SELFPAY ==
--- NOTE | 2021-03-27 13:45 | MR_ITS ---
WS: [id number] MRI LUMBAR SPINE WITH CONTRAST TECHNIQUE: Sagittal T1, T2 and STIR imaging. Axial T1 and T2 imaging. Post gadolinium imaging was obt ained. CLINICAL INFORMATION: INCREASED PAIN AND HX OF BACK SX COMPARISON: CT June 02, 2020 and MRI February 18, 2020 FINDINGS: Prior L1-2 laminectomy defects for prior schwannoma resection. No recurrent intrathecal enh ancing mass or lesion. Mild lumbar curve. No acute compression fractures. Chronic compression T12 and L3 with vertebroplasty changes. Slight retropulsion of the posterior superior cortex L3 with mild central canal stenosis. S light retrolisthesis L3 on L4. L1-L2: Small left foraminal protrusion with mild left and no significant right foraminal narrowing. P rior laminectomy defects. Spinal canal and right foramen are patent. L2-L3: Mild disc bulging with mild central canal stenosis. Impingement on the subarticular recess marti aterally. Mild facet arthropathy. Right foraminal protrusion contacts the exiting right L2 nerve root . Mild right foraminal narrowing. Left foramen is patent. L3-L4: Mild disc bulging with endplate ridging. Mild to moderate facet arthropathy. Slight effacement of ventral thecal sac. Mild bilateral foraminal narrowing. Tiny annular fissure. L4-L5: Mild annular bulging with slight effacement of the ventral thecal sac. Mild facet arthropathy. Mild left greater than right foraminal narrowing. L5-S1: Mild annular bulging with a tiny shallow right pericentral protrusion. Slight contact the righ t S1 nerve root. Mild right L5-S1 foraminal narrowing. Visualized pelvic bony structures: Normal. Paravertebral soft tissues: Normal. MR/MR lumbar spine wo/w con [id number] IMPRESSION: 1. Mild lumbar curve. No acute compression. 2. Prior L1-2 laminectomy defects for prior schwannoma resection. No recurren t intrathecal enhancing mass or lesion. 3. Chronic compression at T12 and L3 vertebral bodies with vertebroplasty fitzpatrick ges. 4. Mild central canal stenosis L2-3 due to disc bulging with facet arthropathy and slight chronic retropulsion posterior superior cortex L3. 5. Small left foraminal protrusion L1-2 with mild left foraminal narrowing con tacts the exiting left L1 nerve root. 6. Multilevel mild bony foraminal narrowing more prominent at right L2-3, bila teral L3-4, left L4-5 and right L5-S1. 7. Tiny shallow right pericentral disc bulge L5-S1 with slight contact of the right S1 nerve root. 8. Moderate facet arthropathy worse at L2-3, L3-4, and L5-S1.
[2021-03-27 15:25] LABS: Blood Urea Nitrogen 12 mg/dL (8-23); Glomerular Filtration Rate 111.5 mL/min (90-130)
[2021-03-27] MEDS: gadobenate dimeglumine 20 mL vial IV (15:39)
== END 2021-03-27 13:35 | disposition home or self-care (01) ==
PROVIDERS: Radiology Neuroradiology; PCP Family Medicine; Visit Provider Family Medicine
DX: Z01.812 Encounter for preprocedural laboratory examination (principal); M47.816 Spondylosis without myelopathy or radiculopathy, lumbar region; M47.817 Spondylosis without myelopathy or radiculopathy, lumbosacral region; M51.27 Other intervertebral disc displacement, lumbosacral region; M51.26 Other intervertebral disc displacement, lumbar region; M48.061 Spinal stenosis, lumbar region without neurogenic claudication; S22.089A Unspecified fracture of T11-T12 vertebra, initial encounter for closed fracture; S32.039A Unspecified fracture of third lumbar vertebra, initial encounter for closed fracture; X58.XXXA Exposure to other specified factors, initial encounter; M96.1 Postlaminectomy syndrome, not elsewhere classified
CPT/HCPCS: 72158; 82565; 84520; A9577

== ENCOUNTER → 2021-05-04 09:07 | Outpatient (BNVA) | payer MEDICARE, MEDICAID, SELFPAY | PROVIDERS: PCP Family Medicine; Referring Provider Orthopaedic Surgery; Visit Provider Anesthesiology Pain Medicine | DX: M48.061 Spinal stenosis, lumbar region without neurogenic claudication (principal); M47.816 Spondylosis without myelopathy or radiculopathy, lumbar region; M54.16 Radiculopathy, lumbar region; M62.830 Muscle spasm of back; Z98.1 Arthrodesis status; Z98.890 Other specified postprocedural states | CPT/HCPCS: 99214 ==

== ENCOUNTER → 2021-05-08 13:35 | Outpatient (BNVA) | payer MEDICARE, MEDICAID, SELFPAY | PROVIDERS: PCP Family Medicine; Visit Provider Anesthesiology Pain Medicine | DX: M47.816 Spondylosis without myelopathy or radiculopathy, lumbar region (principal) | CPT/HCPCS: 64493; 64494; 64495; J3490 ==

== ENCOUNTER → 2021-05-25 08:58 | Outpatient (BNVA) | payer MEDICARE, MEDICAID, SELFPAY | PROVIDERS: PCP Family Medicine; Visit Provider Anesthesiology Pain Medicine | DX: M48.061 Spinal stenosis, lumbar region without neurogenic claudication (principal); M47.816 Spondylosis without myelopathy or radiculopathy, lumbar region; M54.16 Radiculopathy, lumbar region; M47.812 Spondylosis without myelopathy or radiculopathy, cervical region; M62.830 Muscle spasm of back; Z98.1 Arthrodesis status; Z98.890 Other specified postprocedural states | CPT/HCPCS: 99214 ==

== ENCOUNTER → 2021-05-29 14:10 | Outpatient (BNVA) | payer MEDICARE, MEDICAID, SELFPAY | PROVIDERS: PCP Family Medicine; Visit Provider Nurse Practitioner Family | DX: N17.9 Acute kidney failure, unspecified (principal); N40.0 Benign prostatic hyperplasia without lower urinary tract symptoms | CPT/HCPCS: 81000 ==

== ENCOUNTER → 2021-06-22 10:12 | Outpatient (BNVA) | payer MEDICARE, MEDICAID, SELFPAY | PROVIDERS: PCP Family Medicine; Visit Provider Anesthesiology Pain Medicine | DX: M48.061 Spinal stenosis, lumbar region without neurogenic claudication (principal); M47.816 Spondylosis without myelopathy or radiculopathy, lumbar region; M54.16 Radiculopathy, lumbar region; M62.830 Muscle spasm of back; Z98.1 Arthrodesis status; Z98.890 Other specified postprocedural states | CPT/HCPCS: 99214 ==

== ENCOUNTER → 2021-07-01 13:48 | Outpatient (BNVA) | payer MEDICARE, MEDICAID, SELFPAY | PROVIDERS: PCP Family Medicine; Visit Provider Anesthesiology Pain Medicine | DX: M47.816 Spondylosis without myelopathy or radiculopathy, lumbar region (principal) | CPT/HCPCS: 64635; 64636; J1030 ==

== ENCOUNTER → 2021-07-16 12:23 | Outpatient (BNVA) | payer MEDICARE, MEDICAID, SELFPAY | PROVIDERS: PCP Family Medicine; Visit Provider Anesthesiology Pain Medicine | DX: M79.18 Myalgia, other site (principal); M25.512 Pain in left shoulder; M47.816 Spondylosis without myelopathy or radiculopathy, lumbar region; M48.061 Spinal stenosis, lumbar region without neurogenic claudication; M54.16 Radiculopathy, lumbar region; Z98.890 Other specified postprocedural states; Z98.1 Arthrodesis status | CPT/HCPCS: 20553; 99213; 99214; J1030; J3490 ==

== ENCOUNTER → 2021-12-01 08:53 | Outpatient (BNVA) | payer MEDICARE, MEDICAID, SELFPAY | PROVIDERS: PCP Family Medicine; Visit Provider Anesthesiology Pain Medicine | DX: M79.18 Myalgia, other site (principal); M51.17 Intervertebral disc disorders with radiculopathy, lumbosacral region; M48.061 Spinal stenosis, lumbar region without neurogenic claudication; M47.816 Spondylosis without myelopathy or radiculopathy, lumbar region; Z98.1 Arthrodesis status; Z98.890 Other specified postprocedural states | CPT/HCPCS: 20553; 99214 ==

== ENCOUNTER → 2022-01-13 09:04 | Outpatient (BNVA) | payer MEDICARE, MEDICAID, SELFPAY | PROVIDERS: PCP Family Medicine; Visit Provider Anesthesiology Pain Medicine | DX: M48.061 Spinal stenosis, lumbar region without neurogenic claudication (principal); M47.816 Spondylosis without myelopathy or radiculopathy, lumbar region; M51.17 Intervertebral disc disorders with radiculopathy, lumbosacral region; M62.830 Muscle spasm of back; Z98.1 Arthrodesis status; Z98.890 Other specified postprocedural states | CPT/HCPCS: 99214 ==

== ENCOUNTER → 2022-03-17 09:49 | Outpatient (BNVA) | payer MEDICARE, MEDICAID, SELFPAY | PROVIDERS: PCP Family Medicine; Visit Provider Anesthesiology Pain Medicine | DX: M48.061 Spinal stenosis, lumbar region without neurogenic claudication (principal); M47.816 Spondylosis without myelopathy or radiculopathy, lumbar region; M54.16 Radiculopathy, lumbar region; M62.830 Muscle spasm of back; Z98.1 Arthrodesis status; Z98.890 Other specified postprocedural states; Z79.891 Long term (current) use of opiate analgesic | CPT/HCPCS: 99214 ==

== ENCOUNTER → 2022-09-22 12:09 | Outpatient (BNVA) | payer MEDICARE, MEDICAID, SELFPAY | PROVIDERS: PCP Family Medicine; Visit Provider Family Medicine | DX: E87.5 Hyperkalemia (principal) | CPT/HCPCS: 80053 ==

== ENCOUNTER → 2022-09-30 09:53 | Outpatient (BNVA) | payer MEDICARE, MEDICAID, SELFPAY | PROVIDERS: PCP Family Medicine; Visit Provider Nurse Practitioner Family | DX: E87.6 Hypokalemia (principal) | CPT/HCPCS: 80053 ==

== ENCOUNTER → 2024-01-04 11:49 | Outpatient (BNVA) | payer MEDICARE, MEDICAID, SELFPAY | PROVIDERS: PCP Nurse Practitioner Family; Visit Provider Nurse Practitioner Family | DX: R82.90 Unspecified abnormal findings in urine (principal) | CPT/HCPCS: 81000 ==

== ENCOUNTER 2024-02-14 03:04 | Emergency (ER) | payer MEDICARE, MEDICAID, SELFPAY ==
[2024-02-14 03:05] VITALS: BP 125/70; PULSE 72; RESP 16; TEMP 36.6; O2SAT 92; BMI 22.1
[2024-02-14] MEDS: oxyCODONE 5 mg IR Tab/Cap 10 MG PO (03:17)
--- NOTE | 2024-02-14 03:21 | W.ED.BACK ---
HPI - Back Pain/Injury General: Chief Complaint: Back Pain/Injury Stated Complaint: back pain Time Seen by Provider: 02/14/24 03:12 History of Present Illness: Patient has chronic back pain. He said his back was hurting and his [place] at 1 AM was not helping. EMS reports that he slept the entire way here on the ambulance. No saddle numbness, no urinary retention or incontinence, no focal motor deficit, no sensory deficit. no recent fever. no cough. no shortness of breath. no chest pain. no abdominal pain. no nausea or vomiting. no dysuria. no altered mental status. no edema. Review of Systems Narrative: Constitutional symptoms: Negative except as documented in HPI. Skin symptoms: Negative except as documented in HPI. Eye symptoms: Negative except as documented in HPI. ENMT symptoms: Negative except as documented in HPI. Respiratory symptoms: Negative except as documented in HPI. Cardiovascular symptoms: Negative except as documented in HPI. Gastrointestinal symptoms: Negative except as documented in HPI. Genitourinary symptoms: Negative except as documented in HPI. Musculoskeletal symptoms: Negative except as documented in HPI. Neurologic symptoms: Negative except as documented in HPI. Psychiatric symptoms: Negative except as documented in HPI. Endocrine symptoms: Negative except as documented in HPI. PFSH ED PFSH: Medical History Unspecified age-related cataract Follicular disorder, unspecified Osteoarthritis of knee, unspecified Benign prostatic hyperplasia without lower urinary tract symptoms Personal history of (healed) other pathological fracture H/O healed pathologic fracture Generalized anxiety disorder Essential tremor Cervical disc disorder with myelopathy, unspecified cervical region Essential (primary) hypertension Primary generalized (osteo)arthritis Unspecified protein-calorie malnutrition History of falling Gastro-esophageal reflux disease without esophagitis Chest pain, unspecified Other disorders of meninges, not elsewhere classified Other reduced mobility Personal history of sudden cardiac arrest Other recurrent depressive disorders Pyoderma Difficulty in walking, not elsewhere classified Spondylolisthesis, cervical region Unspecified nystagmus Disorder of cartilage, unspecified Alcohol abuse, uncomplicated Diverticulitis of large intestine without perforation or abscess without bleeding BPH (benign prostatic hyperplasia) GERD (gastroesophageal reflux disease) Arthritis Osteoarthritis Tremor Mild cognitive impairment 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 Pain management contract signed Schwannoma of spinal cord Surgical History Arthrodesis status Hx of kyphoplasty L3 05/19/15 S/P cervical spinal fusion History of fusion of cervical spine (~05/31/16) C5-6, C6-7 ACDFF, 05/31/2016, [facility] [place] History of lumbar laminectomy (~11/29/16) 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 Head: Normocephalic Neck: Trachea midline Eye: Extraocular movements are intact. Ears, nose, mouth and throat: Oral mucosa moist Respiratory: Respirations are non-labored Musculoskeletal: Normal ROM Back: no step off, no focal tenderness, some paraspinal muscle tenderness Neurological: Alert and oriented to person, place, time, and situation, No focal neurological deficit observed. Psychiatric: Cooperative, appropriate mood & affect. Course Vital Signs: Vital signs: Vital Signs Temperature 97.8 F 02/14/24 03:05 Pulse Rate 72 02/14/24 03:05 Respiratory Rate 16 02/14/24 03:05 Blood Pressure 125/70 02/14/24 03:05 Pulse Oximetry 92 02/14/24 03:05 Oxygen Delivery Me thod Room Air 02/14/24 03:05 MDM - Back Pain/Injury Medical Decision Making No acute symptoms. Chronic pain. I gave him oxycodone here and he will follow with primary for any further changes in his pain medication regimen Assessment and plan: Chronic back pain - Discharged home - Discussed plan with patient. Answered any questions. - Evaluation and treatment of this problem were appropriate in the emergency setting. No radiology studies performed this visit Discharge Plan Discharge Patient Disposition: Home Clinical Impression: Chronic back pain Condition: Stable Prescriptions: No Action methylprednisolone acetate [Depo-Medrol] 80 mg/mL suspension 80 mg intra-articular ONCE Qty: 1 0RF methylprednisolone acetate [Depo-Medrol] 40 mg/mL suspension 40 mg intra-articular ONCE Qty: 1 0RF bupivacaine (PF) 0.25 % (2.5 mg/mL) solution 1 ml intra-articular ONCE Qty: 1 0RF aspirin 81 mg tablet,delayed release (DR/EC) 81 mg PO DAILY bisacodyl 10 mg suppository 10 mg AL DAILY PRN carbidopa-levodopa 10-100 mg tablet,disintegrating 1 tab PO BID gabapentin 100 mg capsule 200 mg PO DAILY ibuprofen 600 mg tablet 600 mg PO Q8H PRN primidone 50 mg tablet 100 mg PO Q6H acetaminophen 325 mg tablet 650 mg PO QID PRN hydrocodone-acetaminophen 5-325 mg tablet 1 tab PO BID PRN gabapentin 100 mg capsule 100 mg PO BID cholecalciferol (vitamin D3) 25 mcg (1,000 unit) capsule 25 mcg PO DAILY senna 8.6 mg capsule 8.6 mg PO DAILY Rx Instructions: medication on pts mar from [facility] Enema Disposable 19-7 gram/118 mL Enema 118 ml AL DAILY PRN (Reason: Constipation) Rx Instructions: medication on pts mar from [facility] DHS Zinc 2 % Shampoo See Rx Instructions .ROUTE .COMPLEX Rx Instructions: apply to scalp and face everyday medication on pts mar from [facility] topiramate 25 mg tablet 75 mg PO BID Rx Instructions: medication on pts mar from [facility] Nitrostat 0.4 mg Tablet, Sublingual 0.4 mg SUBLINGUAL Q5M PRN (Reason: Chest Pain) Rx Instructions: medication on pts mar from [facility] Hibiclens 4 % Liquid See Rx Instructions .ROUTE .COMPLEX Rx Instructions: wash face daily medication on pts mar from [facility] Biofreeze (menthol) 4 % Gel See Rx Instructions .ROUTE .COMPLEX Rx Instructions: apply topically to back prn and to both knees qid prn medication on pts mar from [facility] Discharge Orders: Discharge ED (Routine); Ordered 02/14/24 Ordered By: Miranda Alexis Referrals: Renee Kitchen, MARK [Primary Care Provider] - 1-3 days Discharge Activity: Increase activity as tolerated Patient Instructions: Opioid Safety, Pain Management Activity Restrictions/Additional Instructions: Thank you for choosing [facility] for your healthcare needs today. Please realize this is an emergency room and that we are providing you with a medical screening exam and this may not be complete and all inclusive of all the testing and or work up that you may need to determine your ailment or severity of your illness. You have been screened and evaluated and felt safe for discharge. Health conditions do change or evolve sometimes and as such it is important that you follow up with your Primary Doctor to be re checked, 3-5 days is a general good time frame for follow up. You are always welcome to return to the ED for re assessment if your symptoms are worsening or you have new concerns Coding Level of Care Code ED Internal Audit Director for [facility]
[2024-02-14 04:02] VITALS: BP 125/70; PULSE 60; RESP 16; O2SAT 91
[2024-02-14 04:34] VITALS: BP 125/70; PULSE 60; RESP 16; TEMP 36.6; O2SAT 91
[2024-02-14 06:41] VITALS: BP 114/64; PULSE 65; RESP 16; O2SAT 94
[2024-02-14 07:52] VITALS: BP 112/78
[2024-02-14 09:42] VITALS: BP 112/78; PULSE 65; RESP 16; TEMP 36.6; O2SAT 94
== END 2024-02-14 07:52 | disposition home or self-care (01) ==
PROVIDERS: Emergency Provider Emergency Medicine; PCP Nurse Practitioner Family
DX: G89.29 Other chronic pain (principal); M54.9 Dorsalgia, unspecified; I10 Essential (primary) hypertension
CPT/HCPCS: 99283

== ENCOUNTER → 2024-03-09 08:18 | Outpatient (BNVA) | payer MEDICARE, MEDICAID, SELFPAY | PROVIDERS: PCP Nurse Practitioner Family; Visit Provider Specialist | DX: R41.841 Cognitive communication deficit (principal); Z98.1 Arthrodesis status | CPT/HCPCS: 99203; 99204 ==

== ENCOUNTER → 2024-08-13 15:31 | Outpatient (BNVA) | payer MEDICARE, MEDICAID, SELFPAY | PROVIDERS: PCP Nurse Practitioner Family; Visit Provider Nurse Practitioner Family | DX: R82.90 Unspecified abnormal findings in urine (principal) | CPT/HCPCS: 81000; 87086 ==

== ENCOUNTER 2024-08-27 13:46 | Emergency (ER) | payer MEDICARE, MEDICAID, SELFPAY ==
[2024-08-27 14:01] VITALS: BP 108/56; PULSE 72; RESP 18; TEMP 36.7; O2SAT 96; BMI 20.7
[2024-08-27 16:05] LABS: Basophils % 0.3 %; Eosinophils # 0.2 10^3/uL (0.0-0.8); Eosinophils % 2.3 %; Hematocrit 47.2 % (37-53); Lymphocytes # 1.8 10^3/uL (0.8-4.8); Lymphocytes % 26.5 %; Mean Corpuscular HGB Conc 32.8 g/dL (30-55); Mean Corpuscular Volume 100.4 fl (82-101); Mean Platelet Volume 11.7 fL (7.4-10.4); Monocytes # 0.6 10^3/uL (0.2-0.9); Monocytes % 9.7 %; Neutrophils # 4.02 10^3/uL (1.8-7.7); Neutrophils % 60.9 %; Nucleated Red Blood Cells % 0 %; Platelet Count 156 10^3/cmm (157-399); Red Cell Distribution Width 13.5 % (12.1-15.1)
[2024-08-27 16:26] LABS: Alanine Aminotransferase 17 U/L (0-41); Albumin Level 3.6 g/dL (3.5-5.2); Alkaline Phosphatase 111 U/L (40-130); Anion Gap 12.9 (5-19); Aspartate Amino Transferase 25 U/L (0-40); Blood Urea Nitrogen 34 mg/dL (8-23); Calcium 7.9 mg/dL (8.5-10.5); Carbon Dioxide 24 mmol/L (22-29); Chloride 108 mmol/L (98-107); Creatinine Clr Calc Pharmacy 56.5177; Globulin 3.9 g/dL (1.3-4.6); Glucose 92 mg/dL (65-115); Osmolality Calculated 299 mOsm/kg (285-295); Potassium 3.9 mmol/L (3.5-5.1); Sodium 141 mmol/L (136-145); Total Bilirubin 0.3 mg/dL (0.15-1.2); Total Protein 7.5 g/dL (6.6-8.7)
[2024-08-27 21:59] VITALS: BP 136/83; PULSE 70; RESP 16; O2SAT 97
--- NOTE | 2024-08-27 22:19 | CTR_ITS ---
PROCEDURE INFORMATION: Exam: CT Abdomen And Pelvis With Contrast Exam date and time: 08/27/2024 10:54 PM Age: 74 years old Clinical indication: Abdominal pain; Acute; Additional info: Right abdominal pain, decrease urination TECHNIQUE: Imaging protocol: Computed tomography of the abdomen and pelvis with contrast. Radiation optimization: All CT scans at this facility use at least one of these dose optimization techniques: automated exposure control; mA and/or kV adjustment per patient size (includes targeted exams where dose is matched to clinical indication); or iterative reconstruction. Contrast material: OMNI 350; Contrast volume: 100 ml; Contrast route: INTRAVENOUS (IV); COMPARISON: US renal BI* [id number] 06/03/2020 3:19 PM RADIATION DOSE METRICS: Total DLP (mGy-cm): 501.1 FINDINGS: Diaphragm: Moderate hiatal hernia. Liver: Fatty liver. Left hepatic lobe cyst measuring 2.6 cm. Hypodense lesion within the right hepatic lobe measuring 1.1 cm (series 3, image 17). Gallbladder and biliary ducts: Status post cholecystectomy. Pancreas: Unremarkable. No ductal dilation. Spleen: A few punctate calcification with the spleen along with a too small to characterize hypodense lesion. Adrenal glands: Unremarkable. No mass. Kidneys and ureters: Left renal cyst measuring 2.7 cm. No hydronephrosis. Stomach and bowel: Colonic diverticulosis. Fluid seen within the rectum and throughout the colon with scattered wall thickening. No bowel obstruction. Appendix: Status post appendectomy. Intraperitoneal space: No free air. No significant fluid collection. Vasculature: No abdominal aortic aneurysm. Lymph nodes: No enlarged lymph nodes. Urinary bladder: Urinary bladder wall thickening. Reproductive: Unremarkable as visualized. Bones/joints: Vertebroplasty changes at T12 and L3. Soft tissues: Bilateral fat containing inguinal hernias. CT/CT abdomen pelvis w con* [id number] IMPRESSION: 1. Proctitis and pancolitis. No bowel obstruction. 2. Nonspecific urinary bladder wall thickening. 3. Hypodense lesion within the right hepatic lobe x 1.1 cm, too small to adequately characterized. This potentially could be a cyst but given small size is ultimately indeterminate. COMMENTS: Consistent with the [employer]'s Incidental Findings Committee white paper (J Am Joleen Radiol 2018): Any incidental renal lesion less than 1 cm or classified as too small to characterize, or any incidental cystic renal lesion characterized as simple-appearing, is likely benign. No follow-up imaging is recommended for these lesions per consensus recommendations based on imaging criteria.
[2024-08-27 22:30] VITALS: BP 155/68; PULSE 99; RESP 16; O2SAT 95
--- NOTE | 2024-08-27 22:38 | W.ED.ABDPA2 ---
HPI - Abdominal Pain General: Chief Complaint: Abdominal Pain Stated Complaint: pain Time Seen by Provider: 08/27/24 21:50 Source: patient Mode of arrival: EMS Limitations: no limitations History of Present Illness: Patient is a 74-year-old male who presented to the emergency department by ambulance for right-sided pain for the past month. He is also reporting decrease urination, however bowel movements have been normal. Overall he is a poor historian, states he comes from a longterm and he does not have any history of kidney stones. States the pain started all of a sudden, does not radiate and is primarily just to the right abdomen. No other symptoms reported. He does appear comfortable at this time, vitals normal. He does have extensive past medical history, I do not see any history of abdominal surgeries in his parents. MD elicited complaint: abdominal pain Onset (ago): month(s) (1) Pain Consistency: constant Location: RUQ, RLQ and R flank Severity: mild Radiation: none Migration to: no migration Exacerbating factors: nothing Relieving factors: nothing Associated Symptoms: Denies bloating, change in stool character, chills, constipation, diarrhea, dysuria, fever(s), hematochezia, hematuria, nausea and vomiting Related Data Home Medications Medication Instructions Recorded Confirmed sennosides 8.6 mg capsule (senna) 8.6 mg PO DAILY 02/12/20 07/12/24 sodium phosphates 19 gram-7 118 ml MI DAILY PRN Constipation 04/20/20 07/12/24 gram/118 mL enema (Enema Disposable) chlorhexidine gluconate 4 % See Rx Instructions .Route .COMPLEX 06/03/20 07/12/24 topical liquid (Hibiclens) menthol 4 % topical gel (Biofreeze See Rx Instructions .Route .COMPLEX 06/03/20 07/12/24 (menthol)) nitroglycerin 0.4 mg sublingual 0.4 mg sublingual Q5M PRN Chest 06/03/20 07/12/24 tablet (Nitrostat) Pain pyrithione zinc 2 % shampoo (DHS See Rx Instructions .Route .COMPLEX 06/03/20 07/12/24 Zinc) topiramate 25 mg tablet 75 mg PO BID 06/03/20 07/12/24 aspirin 81 mg tablet,delayed 81 mg PO DAILY 03/17/22 07/12/24 release bisacodyl 10 mg rectal suppository 10 mg MI DAILY PRN 03/17/22 07/12/24 carbidopa 10 mg-levodopa 100 mg 1 tab PO BID 03/17/22 07/12/24 disintegrating tablet gabapentin 100 mg capsule 200 mg PO DAILY 03/17/22 07/12/24 ibuprofen 600 mg tablet 600 mg PO Q8H PRN 03/17/22 07/12/24 acetaminophen 325 mg tablet 650 mg PO QID PRN 08/29/23 07/12/24 cholecalciferol (vitamin D3) 25 25 mcg PO DAILY 08/29/23 07/12/24 mcg (1,000 unit) capsule gabapentin 100 mg capsule 100 mg PO BID pain 08/29/23 07/12/24 primidone 50 mg tablet 100 mg PO Q6H 08/29/23 07/12/24 hydrocodone 5 mg-acetaminophen 325 1 tab PO BID PRN 09/28/23 07/12/24 mg tablet Previous Rx's Medication Instructions Recorded ciprofloxacin HCl 500 mg tablet 500 mg PO BID 10 days #20 tabs 08/28/24 (Cipro) metronidazole 500 mg tablet 500 mg PO BID 7 days #14 tabs 08/28/24 Allergies Allergy/AdvReac Type Severity Reaction Status Date / Time vancomycin Allergy unknown Verified 03/09/24 08:21 Review of Systems General: Reports: 10 or more systems reviewed and unremarkable except in HPI and below Const: Denies: fever(s), chills, change in appetite, change in weight or diaphoresis ENMT: Denies: throat pain or hoarseness Card: Denies: chest pain, palpitations or lightheadedness Resp: Denies: dyspnea, productive cough or wheezing GI: Reports: abdominal pain; Denies: nausea, vomiting, diarrhea, constipation, bloating, change in stool character or hematochezia : Reports: difficulty urinating; Denies: flank pain, dysuria, urinary urgency or hematuria Musc: Denies: neck pain or back pain Skin/Breast: Denies: rash or new lesions Neuro: Denies: headache(s) or dizziness PFSH ED PFSH: Medical History Unspecified age-related cataract Follicular disorder, unspecified Osteoarthritis of knee, unspecified Benign prostatic hyperplasia without lower urinary tract symptoms Personal history of (healed) other pathological fracture H/O healed pathologic fracture Generalized anxiety disorder Essential tremor Cervical disc disorder with myelopathy, unspecified cervical region Essential (primary) hypertension Primary generalized (osteo)arthritis Unspecified protein-calorie malnutrition History of falling Gastro-esophageal reflux disease without esophagitis Chest pain, unspecified Other disorders of meninges, not elsewhere classified Other reduced mobility Personal history of sudden cardiac arrest Other recurrent depressive disorders Pyoderma Difficulty in walking, not elsewhere classified Spondylolisthesis, cervical region Unspecified nystagmus Disorder of cartilage, unspecified Alcohol abuse, uncomplicated Diverticulitis of large intestine without perforation or abscess without bleeding BPH (benign prostatic hyperplasia) GERD (gastroesophageal reflux disease) Arthritis Osteoarthritis Tremor Mild cognitive impairment Intracranial mass 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 Pain management contract signed Schwannoma of spinal cord Surgical History Arthrodesis status Hx of kyphoplasty L3 05/19/15 S/P cervical spinal fusion History of fusion of cervical spine (~05/31/16) C5-6, C6-7 ACDFF, 05/31/2016, [facility] [place] History of lumbar laminectomy (~11/29/16) 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, extramedullary neoplasm, 11/29/2016, [facility] [place] Family History Other Essential tremor Social History Smoking and tobacco/nicotine status: unknown if used tobacco/nicotine Alcohol intake: never Lives independently: Yes Housing: Assisted Living Facility Marital status: Single Current occupational status: retired Physical Exam Const: COMMON NORMALS: no acute distress, average body habitus, patient oriented x3, no limitations, healthy appearing, alert and well nourished GENERAL APPEARANCE: cooperative and comfortable ORIENTATION/CONSCIOUSNESS: Yes awake HENMT: COMMON NORMALS: normocephalic, atraumatic, hearing grossly normal bilaterally, external ears normal, Normal external nose present, Normal nasal mucous membranes and turbinates present and moist oral mucous membranes HEAD & SCALP: normocephalic and atraumatic NOSE: Normal external nose present and Normal nasal mucous membranes and turbinates present EXTERNAL EAR: Yes external ears normal Eye: COMMON NORMALS: Equal, round and reactive pupils present, EOMs intact bilaterally, conjunctivae normal and normal visual collins by confrontation CONJUNCTIVA: Yes conjunctivae normal PUPIL: Yes Equal, round and reactive pupils present Neck/C-Spine: COMMON NORMALS: full ROM, supple, no meningeal signs and no JVD Resp: COMMON NORMALS: normal respiratory effort, No retractions, No use of accessory muscles and clear to auscultation bilaterally AUSCULTATION: clear to auscultation bilaterally, no crackles, no rales, no rhonchi and no wheezes Cardio: COMMON NORMALS: no JVD, regular rate, regular rhythm, S1 normal heart sound present, S2 normal heart sound present, No gallops present (Cardio), No clicks present (Cardio), No murmurs present (Cardio), No rub (Cardio) and Peripheral pulses 2+ throughout RATE: regular rate RHYTHM: regular rhythm HEART SOUNDS: S1 normal heart sound present and S2 normal heart sound present PERIPHERAL PULSES: Peripheral pulses 2+ throughout GI: COMMON NORMALS: Normal to inspection, nondistended, normoactive bowel sounds present, Soft to palpation, No hepatosplenomegaly present and no masses AUSCULTATION: Yes normoactive bowel sounds PALPATION: Yes Soft to palpation, No Guarding due to palpation present (GI), No Rigid due to palpation and Yes No hepatosplenomegaly present RECTAL EXAM: Yes deferred OTHER: Tenderness to palpation of patient's right abdomen, mild Extremity: COMMON NORMALS: normal to inspection and full ROM Neuro: COMMON NORMALS: patient oriented x3, moves all extremities, no focal motor deficits and no sensory deficits noted SENSORIUM/ORIENTATION: Yes alert MENINGEAL SIGNS: Yes no meningeal signs Psych: COMMON NORMALS: mental status grossly normal, cooperative and speech normal SPEECH: Yes normal speech Skin: COMMON NORMALS: no rashes or lesions noted GENERAL SKIN EXAM: no rashes or lesions noted Course Vital Signs: Vital signs: Vital Signs Temperature 98.0 F 08/27/24 14:01 Pulse Rate 85 08/27/24 23:30 Respiratory Rate 18 08/27/24 23:30 Blood Pressure 111/71 08/27/24 23:30 Pulse Oximetry 89 L 08/27/24 23:30 Oxygen Delivery Me thod Room Air 08/27/24 14:01 MDM - Abdominal Pain Medical Decision Making Patient brought in by ambulance from assisted living facility for right side abdominal pain that has been present for a month. Also some decrease in urination. Ultimately patient was a poor historian, though his physical examination ultimately unremarkable aside from some very mild reducible tenderness to palpation of the right abdomen. His labs and urine were ultimately unremarkable. CT did show evidence of pancolitis including proctitis, could be resembling the pain patient is reporting. Also with some urinary bladder wall thickening and is very likely he is also having a urinary tract infection, we will treat with Cipro and Flagyl and have him follow-up with primary care. Lab Data 08/27/24 15:48 08/27/24 15:48 Labs/Radiology: Radiology Impressions Abdomen/Pelvis CT 08/27/24 22:19 IMPRESSION: 1. Proctitis and pancolitis. No bowel obstruction. 2. Nonspecific urinary bladder wall thickening. 3. Hypodense lesion within the right hepatic lobe x 1.1 cm, too small to adequately characterized. This potentially could be a cyst but given small size is ultimately indeterminate. COMMENTS: Consistent with the [employer]'s Incidental Findings Committee white paper (J Am Joleen Radiol 2018): Any incidental renal lesion less than 1 cm or classified as too small to characterize, or any incidental cystic renal lesion characterized as simple-appearing, is likely benign. No follow-up imaging is recommended for these lesions per consensus recommendations based on imaging criteria. Laboratory Results WBC 6.60 10^3/uL (3.29-11.43) 08/27/24 15:48 RBC 4.70 10^6/uL (3.85-5.65) 08/27/24 15:48 Hgb 15.50 g/dL (11.27-16.99) 08/27/24 15:48 Hct 47.2 % (37-53) 08/27/24 15:48 MCV 100.4 fl (82-101) 08/27/24 15:48 MCH 33.0 pg (27-33) 08/27/24 15:48 MCHC 32.8 g/dL (30-55) 08/27/24 15:48 RDW 13.5 % (12.1-15.1) 08/27/24 15:48 Plt Count 156 10^3/cmm (157-399) L 08/27/24 15:48 MPV 11.7 fL (7.4-10.4) H 08/27/24 15:48 Neut % (Auto) 60.9 % 08/27/24 15:48 Lymph % (Auto) 26.5 % 08/27/24 15:48 [place] % (Auto) 9.7 % 08/27/24 15:48 Eos % (Auto) 2.3 % 08/27/24 15:48 Baso % (Auto) 0.3 % 08/27/24 15:48 Neut # (Auto) 4.02 10^3/uL (1.8-7.7) 08/27/24 15:48 Lymph # (Auto) 1.8 10^3/uL (0.8-4.8) 08/27/24 15:48 [place] # (Auto) 0.6 10^3/uL (0.2-0.9) 08/27/24 15:48 Eos # (Auto) 0.2 10^3/uL (0.0-0.8) 08/27/24 15:48 Baso # (Auto) 0.0 10^3/uL (0.0-0.1) 08/27/24 15:48 Nucleated RBC % (auto) 0 % 08/27/24 15:48 Nucleated RBCs # 0.0 /100WBC 08/27/24 15:48 Sodium 141 mmol/L (136-145) 08/27/24 15:48 Potassium 3.9 mmol/L (3.5-5.1) 08/27/24 15:48 Chloride 108 mmol/L (98-107) H 08/27/24 15:48 Carbon Dioxide 24 mmol/L (22-29) 08/27/24 15:48 Anion Gap 12.9 (5-19) 08/27/24 15:48 BUN 34 mg/dL (8-23) H 08/27/24 15:48 Creatinine 1.1 mg/dL (0.7-1.2) 08/27/24 15:48 GFR Calculation Not Reportable 08/27/24 15:48 Glucose 92 mg/dL (65-115) 08/27/24 15:48 Calculated Osmolality 299 mOsm/kg (285-295) H 08/27/24 15:48 Calcium 7.9 mg/dL (8.5-10.5) L 08/27/24 15:48 Total Bilirubin 0.3 mg/dL (0.15-1.2) 08/27/24 15:48 AST 25 U/L (0-40) 08/27/24 15:48 ALT 17 U/L (0-41) 08/27/24 15:48 Alkaline Phosphatase 111 U/L (40-130) 08/27/24 15:48 Total Protein 7.5 g/dL (6.6-8.7) 08/27/24 15:48 Albumin 3.6 g/dL (3.5-5.2) 08/27/24 15:48 Globulin 3.9 g/dL (1.3-4.6) 08/27/24 15:48 Urine Color Dark yellow (Yellow) A 08/27/24 22:30 Urine Appearance Clear (CLEAR) 08/27/24 22:30 Urine pH 5.0 (5-7) 08/27/24 22:30 Ur Specific [place] 1.027 (1.005-1.030) 08/27/24 22:30 Urine Protein 1+ (Negative) A 08/27/24 22:30 Urine Glucose (UA) Negative (Normal) 08/27/24 22:30 Urine Ketones 1+ (Negative) H 08/27/24 22:30 Urine Blood Negative (Negative) 08/27/24 22:30 Urine Nitrate Negative (Negative) 08/27/24 22:30 Urine Bilirubin Negative (Negative) 08/27/24 22:30 Urine Urobilinogen 1.0 mg/dL (Negative) 08/27/24 22:30 Ur Leukocyte Esterase 1+ (Negative) A 08/27/24 22:30 Urine RBC 3-5 /hpf (0-2) 08/27/24 22:30 Urine WBC 6-10 /hpf (0-5) 08/27/24 22:30 Ur Squamous Epith Cells 0-5 /hpf (0-5) 08/27/24 22:30 Amorphous Sediment Not Reportable 08/27/24 22:30 Urine Bacteria None seen /hpf (NONE) 08/27/24 22:30 Hyaline Casts 14.47 /lpf 08/27/24 22:30 All radiology interpretation(s) finalized by discharge Discharge Plan Discharge Patient Disposition: Home Clinical Impression: Pancolitis Condition: Stable Prescriptions: New metronidazole 500 mg tablet 500 mg PO BID 7 Days Qty: 14 0RF ciprofloxacin HCl [Cipro] 500 mg tablet 500 mg PO BID 10 Days Qty: 20 0RF No Action methylprednisolone acetate [Depo-Medrol] 80 mg/mL suspension 80 mg intra-articular ONCE Qty: 1 0RF methylprednisolone acetate [Depo-Medrol] 40 mg/mL suspension 40 mg intra-articular ONCE Qty: 1 0RF bupivacaine (PF) 0.25 % (2.5 mg/mL) solution 1 ml intra-articular ONCE Qty: 1 0RF aspirin 81 mg tablet,delayed release (DR/EC) 81 mg PO DAILY bisacodyl 10 mg suppository 10 mg MI DAILY PRN carbidopa-levodopa 10-100 mg tablet,disintegrating 1 tab PO BID gabapentin 100 mg capsule 200 mg PO DAILY ibuprofen 600 mg tablet 600 mg PO Q8H PRN primidone 50 mg tablet 100 mg PO Q6H acetaminophen 325 mg tablet 650 mg PO QID PRN hydrocodone-acetaminophen 5-325 mg tablet 1 tab PO BID PRN gabapentin 100 mg capsule 100 mg PO BID cholecalciferol (vitamin D3) 25 mcg (1,000 unit) capsule 25 mcg PO DAILY senna 8.6 mg capsule 8.6 mg PO DAILY Rx Instructions: medication on pts mar from [facility] Enema Disposable 19-7 gram/118 mL Enema 118 ml MI DAILY PRN (Reason: Constipation) Rx Instructions: medication on pts mar from [facility] DHS Zinc 2 % Shampoo See Rx Instructions .ROUTE .COMPLEX Rx Instructions: apply to scalp and face everyday medication on pts mar from [facility] topiramate 25 mg tablet 75 mg PO BID Rx Instructions: medication on pts mar from [facility] Nitrostat 0.4 mg Tablet, Sublingual 0.4 mg SUBLINGUAL Q5M PRN (Reason: Chest Pain) Rx Instructions: medication on pts mar from [facility] Hibiclens 4 % Liquid See Rx Instructions .ROUTE .COMPLEX Rx Instructions: wash face daily medication on pts mar from [facility] Biofreeze (menthol) 4 % Gel See Rx Instructions .ROUTE .COMPLEX Rx Instructions: apply topically to back prn and to both knees qid prn medication on pts mar from [facility] Discharge Orders: Discharge ED (Routine); Ordered 08/28/24 Ordered By: Ilya Myers Referrals: Renee Kitchen NP [Primary Care Provider] - Patient Instructions: Colitis (ED) Activity Restrictions/Additional Instructions: Cipro and Flagyl as prescribed. GI soft diet. Drink plenty of fluids. Follow-up with primary care, as you may require colonoscopy for further workup/management. Return with any new or worsening. Coding Level of Care Code ED Ergonomics Consultant for Nava Amezquita
[2024-08-27 23:00] VITALS: BP 119/78; PULSE 97; RESP 16; O2SAT 92
[2024-08-27 23:00] LABS: Bilirubin Urine Negative (Negative); Blood Urine Negative (Negative); Glucose Urine UA Negative (Normal); Ketones Urine 1+ (Negative); Leukocyte Esterase Urine 1+ (Negative); Nitrate Urine Negative (Negative); Protein Urine 1+ (Negative); Specific Gravity, Urine 1.027 (1.005-1.030); Urine Appearance Clear (CLEAR); Urine Color Dark Yellow (Yellow)
[2024-08-27] MEDS: iohexol 350 mg/mL 500 mL Btl (per mL) IV (23:01)
[2024-08-27 23:05] LABS: Add Urine Microscopic? YES; Bacteria Urine None Seen /hpf; Hyaline Casts Urine 14.47 /lpf; Squamous Epithelial Cell Urine 0-5 /hpf (0-5)
[2024-08-27 23:30] VITALS: BP 111/71; PULSE 85; RESP 18; O2SAT 89
[2024-08-28] VITALS: BP 115/92; PULSE 82; RESP 16; O2SAT 95
[2024-08-28] MEDS: ciprofloxacin 500 mg Tablet PO (00:27)
[2024-08-28] MEDS: metroNIDAZOLE 500 MG Tablet PO (00:27)
[2024-08-28 02:00] VITALS: BP 116/71; PULSE 69; RESP 15; O2SAT 90
[2024-08-28 04:15] VITALS: BP 113/75; PULSE 75; O2SAT 93
== END 2024-08-28 04:17 | disposition home or self-care (01) ==
PROVIDERS: Physician Assistant; Emergency Provider Physician Assistant; PCP Nurse Practitioner Family
DX: K52.9 Noninfective gastroenteritis and colitis, unspecified (principal); I10 Essential (primary) hypertension
CPT/HCPCS: 36415; 74177; 80053; 81001; 85025; 99285

== ENCOUNTER → 2025-05-03 08:15 | Outpatient (BNVA) | payer MEDICARE, MEDICAID, SELFPAY | PROVIDERS: PCP Nurse Practitioner Family; Visit Provider Specialist | DX: S62.336A Displaced fracture of neck of fifth metacarpal bone, right hand, initial encounter for closed fracture (principal); W22.09XA Striking against other stationary object, initial encounter | CPT/HCPCS: 73130 ==

== ENCOUNTER 2025-05-03 09:01 | Outpatient (CLI) | payer MEDICARE, MEDICAID, SELFPAY | END 2025-05-03 09:02 | disposition home or self-care (01) | LOC: SPT 09:02 | PROVIDERS: PCP Nurse Practitioner Family; Visit Provider Specialist | DX: Z46.89 Encounter for fitting and adjustment of other specified devices (principal); S62.339D Displaced fracture of neck of unspecified metacarpal bone, subsequent encounter for fracture with routine healing; X58.XXXD Exposure to other specified factors, subsequent encounter | CPT/HCPCS: 99204; L3807 ==

== ENCOUNTER → 2025-08-28 14:13 | Outpatient (BNVA) | payer MEDICARE, MEDICAID, SELFPAY | PROVIDERS: PCP Nurse Practitioner Family; Visit Provider Nurse Practitioner Family | DX: G20.B1 Parkinson's disease with dyskinesia, without mention of fluctuations (principal); R52 Pain, unspecified | CPT/HCPCS: 81000; 87086 ==